=== PATIENT | male | born 1975 | race American Indian/Alaskan Native ===

== ENCOUNTER 2018-01-16 23:25 | Inpatient (IN) | payer OTHER ==
[2018-01-16] MEDS ORDERED: DUONEB *Not for PRN Use IH ONE (23:31)
[2018-01-16] MEDS ORDERED: PROVENTIL IH ONE (23:32)
[2018-01-17] MEDS ORDERED: DELTASONE PO ONE (01:47)
[2018-01-17] MEDS ORDERED: PROVENTIL IH ONE (01:48)
[2018-01-17] MEDS ORDERED: DUONEB *Not for PRN Use IH ONE ×2 (06:13→06:15)
[2018-01-17] MEDS ORDERED: MAGNESIUM SULFATE 2GM/50ML 2 GM/50 ML BAG IV ONE (06:14)
[2018-01-17] MEDS ORDERED: NACL 0.9% 1000 ML 1,000 ML IV ONE (06:51)
--- NOTE | 2018-01-17 07:18 | XRay Report ---
FINAL REPORT EXAM: XR CHEST 1V AP HISTORY: hypertension TECHNIQUE: A portable upright view of the chest was submitted. FINDINGS: The heart size and pulmonary vasculature appear normal. There are no localized infiltrates or effusions. There are EKG leads overlying the chest wall. The bones and soft tissues do not show any acute changes. IMPRESSION: No active chest disease.
--- NOTE | 2018-01-17 07:24 | XRay Report ---
FINAL REPORT EXAM: XR ANKLE 2V LT HISTORY: trauma pain TECHNIQUE: AP and lateral views of the left ankle were submitted. FINDINGS: There is a localized cortical lucency along the medial aspect of the talar dome suspicious for an osteochondritis desiccans. Joint fluid is not seen. There is mild soft tissue swelling overlying the lateral malleolus. IMPRESSION: Localized cortical lucency along the medial margin of the talar dome suspicious for an osteochondritis desiccans. MRI of the ankle is recommended for definitive evaluation. Mild soft tissue swelling overlying the lateral malleolus.
[2018-01-17 07:36] LABS: Basophils % (Auto) 0.7 % (0.0-1.8); Eosinophils # (Auto) 0.1 K/mm3 (0.0-0.4); Eosinophils % (Auto) 0.8 % (0.0-4.3); Hemoglobin 15.9 gm/dl (11.8-15.2); Lymphocytes # (Auto) 0.9 K/mm3 (1.2-5.4); Lymphocytes % (Auto) 13.1 % (13.4-35.0); Mean Corpuscular HGB Conc 34 % (32-34); Mean Corpuscular Hemoglobin 32 pg (28-32); Mean Corpuscular Volume 95 fl (84-94); Monocytes # (Auto) 0.1 K/mm3 (0.0-0.8); Monocytes % (Auto) 1.7 % (0.0-7.3); Platelet Count 231 K/mm3 (140-440); Red Blood Count 4.97 M/mm3 (3.65-5.03); Red Cell Distribution Width 15.6 % (13.2-15.2)
[2018-01-17 07:43] LABS: BUN/Creatinine Ratio 16; Blood Urea Nitrogen 18 mg/dL (9-20); Calcium 9.1 mg/dL (8.4-10.2); Creatine Kinase MB 7.5 ng/mL (0.0-4.0); Hemolysis Index 9
[2018-01-17 07:44] LABS: Alanine Aminotransferase 30 units/L (7-56); Albumin 4.5 g/dL (3.9-5); Bilirubin,Direct 0.2 mg/dL (0-0.2)
[2018-01-17 07:45] LABS: INR 0.98 (0.87-1.13)
[2018-01-17 07:46] LABS: Partial Thromboplastin Time 28.4 Sec. (24.2-36.6)
[2018-01-17] MEDS ORDERED: PROVENTIL IH PRN (08:35)
[2018-01-17] MEDS ORDERED: SODIUM CHLORIDE FLUSH SYRINGE 10 ML IV PRN (08:35)
[2018-01-17] MEDS ORDERED: TYLENOL PO PRN (08:35)
[2018-01-17] MEDS ORDERED: ZOFRAN IV PRN (08:35)
--- NOTE | 2018-01-17 08:38 | History and Physical Report ---
History of Present Illness Date of examination: 01/17/18 Date of admission: 01/17/18 Chief complaint: Shortness of breath History of present illness: This is a 42-year-old male with past medical history of asthma who presents to the hospital with complaining of left ankle pain which he believes he sustained following a missed step. He reports that he triggered his respiratory symptoms and became acutely short of breath prompting him to present to the hospital. He denies any cough denies any nausea vomiting or diarrhea and denies any chest pain. He complains of pain in the left ankle which is a 3/10 in intensity at rest and with any pressure to it goes up to 7/10 in intensity. He denies any fever. Uses tobacco and marijuana. Past History Past Medical History: other (asthma) Past Surgical History: No surgical history Social history: smoking Family history: no significant family history Medications and Allergies Allergies Allergy/AdvReac Type Severity Reaction Status Date / Time No Known Allergies Allergy Verified 08/17/15 15:32 Home Medications Medication Instructions Recorded Confirmed Last Taken Type ALBUTEROL Inhaler [ProAir HFA 2 puff IH QID PRN #1 inha 08/17/15 Unknown Rx Inhaler] Acyclovir [Zovirax Tab] 400 mg PO Q8H #30 tab 08/17/15 Unknown Rx HYDROcodone/APAP 5-325 [[place] 1 - 2 each PO Q6HR PRN #10 tablet 08/17/15 Unknown Rx 5/325] Prednisone [predniSONE 10 mg 10 mg PO .TAPER #1 tab.ds.pk 08/17/15 Unknown Rx (6-Day Pack, 21 Tabs)] Active Meds: Active Medications Acetaminophen (Tylenol) 650 mg PO Q4H PRN PRN Reason: Pain MILD(1-3)/Fever >100.5/WILSON Albuterol (Proventil) 2.5 mg IH Q3HRT PRN PRN Reason: Shortness Of Breath Arformoterol Tartrate (Brovana Nebu) 15 mcg IH Q12HRT DUGLAS Budesonide (Pulmicort) 0.5 mg IH Q12HRT DUGLAS Sodium Chloride (Nacl 0.9% 1000 Ml) 1,000 mls @ 125 mls/hr IV ONCE ONE Stop: 01/17/18 14:50 Last Admin: 01/17/18 07:01 Dose: 125 mls/hr Methylprednisolone Sodium Succinate (Solu-Medrol) 80 mg IV Q8HR DUGLAS Ondansetron HCl (Zofran) 4 mg IV Q8H PRN PRN Reason: Nausea And Vomiting Sodium Chloride (Sodium Chloride Flush Syringe 10 Ml) 10 ml IV BID DUGLAS Sodium Chloride (Sodium Chloride Flush Syringe 10 Ml) 10 ml IV PRN PRN PRN Reason: LINE FLUSH Review of Systems All systems: negative Respiratory: shortness of breath, wheezing Musculoskeletal: redness of joints, other (ankle pain) Exam - Physical Exam Narrative exam: VITAL SIGNS: Reviewed. GENERAL: The patient appeared well nourished and normally developed. Vital signs as documented. HEAD: No signs of head trauma. EYES: Pupils are equal. Extraocular motions intact. EARS: Hearing grossly intact. MOUTH: Oropharynx is normal. NECK: No adenopathy, no JVD. CHEST: Chest with wheezing breath sounds bilaterally. No , rales, or rhonchi. CARDIAC: Regular rate and rhythm. S1 and S2, without murmurs, gallops, or rubs. VASCULAR: No Edema. Peripheral pulses normal and equal in all extremities. ABDOMEN: Soft, without detectable tenderness. No sign of distention. No rebound or guarding, and no masses palpated. Bowel Sounds normal. MUSCULOSKELETAL: Good range of motion of all major joints, except left joints tender to palpation mildly swollen.. Extremities without clubbing, cyanosis or edema. NEUROLOGIC EXAM: Alert and oriented x 3. No focal sensory or strength deficits. Speech normal. Follows commands. PSYCHIATRIC: Mood anxious SKIN: No rash or lesions. - Constitutional Vitals: Temp Pulse Resp BP Pulse Ox 97.8 F 89 18 118/80 98 01/17/18 06:15 01/17/18 06:45 01/17/18 06:45 01/17/18 06:15 01/17/18 07:27 Results - Labs CBC & Chem 7: 01/17/18 07:00 01/17/18 07:00 Labs: Laboratory Last Values WBC 6.8 K/mm3 (4.5-11.0) 01/17/18 07:00 RBC 4.97 M/mm3 (3.65-5.03) 01/17/18 07:00 Hgb 15.9 gm/dl (11.8-15.2) H 01/17/18 07:00 Hct 47.0 % (35.5-45.6) H 01/17/18 07:00 MCV 95 fl (84-94) H 01/17/18 07:00 MCH 32 pg (28-32) 01/17/18 07:00 MCHC 34 % (32-34) 01/17/18 07:00 RDW 15.6 % (13.2-15.2) H 01/17/18 07:00 Plt Count 231 K/mm3 (140-440) 01/17/18 07:00 Lymph % (Auto) 13.1 % (13.4-35.0) L 01/17/18 07:00 [place] % (Auto) 1.7 % (0.0-7.3) 01/17/18 07:00 Eos % (Auto) 0.8 % (0.0-4.3) 01/17/18 07:00 Baso % (Auto) 0.7 % (0.0-1.8) 01/17/18 07:00 Lymph # 0.9 K/mm3 (1.2-5.4) L 01/17/18 07:00 [place] # 0.1 K/mm3 (0.0-0.8) 01/17/18 07:00 Eos # 0.1 K/mm3 (0.0-0.4) 01/17/18 07:00 Baso # 0.0 K/mm3 (0.0-0.1) 01/17/18 07:00 Seg Neutrophils % 83.7 % (40.0-70.0) H 01/17/18 07:00 Seg Neutrophils # 5.7 K/mm3 (1.8-7.7) 01/17/18 07:00 PT 13.5 Sec. (12.2-14.9) 01/17/18 07:00 INR 0.98 (0.87-1.13) 01/17/18 07:00 APTT 28.4 Sec. (24.2-36.6) 01/17/18 07:00 Sodium 137 mmol/L (137-145) 01/17/18 07:00 Potassium 4.2 mmol/L (3.6-5.0) 01/17/18 07:00 Chloride 99.4 mmol/L (98-107) 01/17/18 07:00 Carbon Dioxide 24 mmol/L (22-30) 01/17/18 07:00 Anion Gap 18 mmol/L 01/17/18 07:00 BUN 18 mg/dL (9-20) 01/17/18 07:00 Creatinine 1.1 mg/dL (0.8-1.5) 01/17/18 07:00 Estimated GFR > 60 ml/min 01/17/18 07:00 BUN/Creatinine Ratio 16 % 01/17/18 07:00 Glucose 131 mg/dL (75-100) H 01/17/18 07:00 Calcium 9.1 mg/dL (8.4-10.2) 01/17/18 07:00 Magnesium 3.10 mg/dL (1.7-2.3) H 01/17/18 07:00 Total Bilirubin 0.50 mg/dL (0.1-1.2) 01/17/18 07:00 Direct Bilirubin 0.2 mg/dL (0-0.2) 01/17/18 07:00 Indirect Bilirubin 0.3 mg/dL 01/17/18 07:00 AST 29 units/L (5-40) 01/17/18 07:00 ALT 30 units/L (7-56) 01/17/18 07:00 Alkaline Phosphatase 56 units/L (35-129) 01/17/18 07:00 Total Creatine Kinase 1229 units/L (55-170) H 01/17/18 07:00 CK-MB (CK-2) 7.5 ng/mL (0.0-4.0) H 01/17/18 07:00 CK-MB (CK-2) Rel Index 0.6 (0-4) 01/17/18 07:00 Troponin T < 0.010 ng/mL (0.00-0.029) 01/17/18 07:00 Total Protein 7.5 g/dL (6.3-8.2) 01/17/18 07:00 Albumin 4.5 g/dL (3.9-5) 01/17/18 07:00 Albumin/Globulin Ratio 1.5 % 01/17/18 07:00 - Imaging and Cardiology Imaging and Cardiology: Echo images shows possible ankle sprain with osteochondritis Assessment and Plan Assessment and plan: This is a 42-year-old male with past medical history of asthma who presents to the hospital with complaining of left ankle pain which he believes he sustained following a missed step. He reports that he triggered his respiratory symptoms and became acutely short of breath prompting him to present to the hospital. He denies any cough denies any nausea vomiting or diarrhea and denies any chest pain. He complains of pain in the left ankle which is a 3/10 in intensity at rest and with any pressure to it goes up to 7/10 in intensity. He denies any fever. Uses tobacco and marijuana. Acute respiratory failure secondary to asthma exacerbation Asthma exacerbation Left ankle sprain with possible osteochondritis Tobacco abuse Anxiety disorder Marijuana use disorder Plan Admit patient to [facility] Start on low-dose Xanax when necessary Urine drug screen pending Start on tapered steroids with nebulizer treatment Extensive counseling greater than 50 minutes provided patient but need to quit tobacco and marijuana use Obtain MRI of the ankle to better characterize we'll also obtain PT OT. DVT and GI prophylaxis Plan of care discussed with the patient in detail Advance Directives: Yes Plan of care discussed with patient/family: Yes
[2018-01-17] MEDS ORDERED: NON-FORMULARY (Acyclovir [Zovirax Tab] 400 MG) PO SCH (08:45)
[2018-01-17] MEDS: PULMICORT IH SCH ×2 (12:02→20:33)
[2018-01-17] MEDS: BROVANA NEBU IH SCH ×2 (12:02→20:33)
[2018-01-17] MEDS: SODIUM CHLORIDE FLUSH SYRINGE 10 ML IV SCH ×2 (13:03→21:15)
[2018-01-17] MEDS: ZOVIRAX PO SCH ×2 (14:27→21:15)
[2018-01-17] MEDS: PROVENTIL IH SCH ×2 (16:33→20:33)
[2018-01-17 17:38] LABS: Amphetamine Screen,Urine PRESUMPTIVE NEGATIVE; Benzodiazepines Screen,Urine PRESUMPTIVE NEGATIVE; Cannabinoid Screen,Urine PRESUMPTIVE NEGATIVE; Methadone Screen,Urine PRESUMPTIVE NEGATIVE; Opiate Screen,Urine PRESUMPTIVE NEGATIVE
[2018-01-17 18:12] LABS: Cocaine Screen,Urine PRESUMPTIVE POSITIVE
[2018-01-17] MEDS ORDERED: XANAX PO PRN (18:44)
[2018-01-17] MEDS: NORCO 5/325 PO PRN (21:14)
[2018-01-18] MEDS: PROVENTIL IH SCH ×5 (00:28→15:41)
[2018-01-18] MEDS: NORCO 5/325 PO PRN (05:30)
[2018-01-18] MEDS: ZOVIRAX PO SCH ×2 (05:31→14:00)
[2018-01-18 07:16] LABS: Hematocrit 45.2 % (35.5-45.6); Hemoglobin 14.9 gm/dl (11.8-15.2); Mean Corpuscular HGB Conc 33 % (32-34); Mean Corpuscular Hemoglobin 31 pg (28-32); Mean Corpuscular Volume 95 fl (84-94); Platelet Count 227 K/mm3 (140-440); Red Blood Count 4.75 M/mm3 (3.65-5.03); Red Cell Distribution Width 15.6 % (13.2-15.2)
[2018-01-18 07:38] LABS: BUN/Creatinine Ratio 18; Blood Urea Nitrogen 14 mg/dL (9-20); Calcium 9.2 mg/dL (8.4-10.2); Hemolysis Index 13
[2018-01-18 08:08] LABS: Band Neutrophils # (Manual) 0.1 K/mm3; Basophils % (Manual) 0 % (0.0-1.8); Eosinophils % (Manual) 0 % (0.0-4.3); Total Cells Counted 100
[2018-01-18 08:09] LABS: RBC Morphology Normal
[2018-01-18] MEDS: PULMICORT IH SCH (08:47)
[2018-01-18] MEDS: BROVANA NEBU IH SCH (08:51)
[2018-01-18] MEDS: SODIUM CHLORIDE FLUSH SYRINGE 10 ML IV SCH (10:59)
--- NOTE | 2018-01-18 17:07 | Discharge Summary ---
Providers - Providers Date of Admission: 01/17/18 08:35 Date of discharge: 01/18/18 Attending physician: INMESH OLVERA 01/17/18 19:15 Physical Therapy Evaluation and Treat [CONS] Routine Comment: Reason For Exam: ataxic gait Primary care physician: [employer] Hospitalization Condition: Good Pertinent studies: X-ray radiograph negative for ankle open fracture. Disposition: - TO HOME OR SELFCARE - Discharge Diagnoses (1) Asthma exacerbation Status: Acute Comment: Patient asthma has improved significantly. Patient has turned the corner. Minimal wheezing good air entry no shortness of breath. Stable for discharge. (2) Ankle pain, left Status: Acute Comment: Ankle pain status post fall. X-ray unremarkable. Patient area on ankle which was questionable for osteochondritis dissecans. Unlikely at this particular time. MRI pending. Does not need MRI to complete this workup. Can be done on outpatient basis. Patient able to move foot laterally no pain no pain upon palpation. Normal eversion and inversion and pronation and flexion of the foot and ankle. Core Measure Documentation - Palliative Care Palliative Care/ Comfort Measures: Not Applicable - Core Measures Any of the following diagnoses?: none Exam - Constitutional Vitals: Temp Pulse Resp BP Pulse Ox 97.4 F L 80 18 123/71 93 01/18/18 08:54 01/18/18 08:55 01/18/18 08:54 01/18/18 08:54 01/18/18 08:55 General appearance: Present: no acute distress, well-nourished - EENT Eyes: Present: PERRL ENT: hearing intact, clear oral mucosa - Neck Neck: Present: supple, normal ROM - Respiratory Respiratory effort: normal Respiratory: bilateral: CTA - Cardiovascular Heart Sounds: Present: S1 & S2. Absent: rub, click - Extremities Extremities: pulses symmetrical, No edema Peripheral Pulses: within normal limits - Abdominal General gastrointestinal: Present: soft, non-tender, non-distended, normal bowel sounds Male genitourinary: Present: normal - Integumentary Integumentary: Present: clear, warm, dry - Musculoskeletal Musculoskeletal: gait normal, strength equal bilaterally - Psychiatric Psychiatric: appropriate mood/affect, intact judgment & insight - Neurologic Neurologic: CNII-XII intact, moves all extremities Plan Activity: fall precautions Weight Bearing Status: Weight Bear as Tolerated Diet: low fat Follow up with: PRIMARY CARE, [Primary Care Provider] - 7 Days Prescriptions: Acyclovir [Zovirax Tab] 400 mg PO Q8H #30 tab ALBUTEROL Inhaler [ProAir HFA Inhaler] 2 puff IH QID PRN #1 inha PRN Reason: Shortness Of Breath Prednisone [predniSONE 10 mg (6-Day Pack, 21 Tabs)] 10 mg PO .TAPER #1 tab.ds.pk
[2018-01-18 18:49] VITALS: BP 131/84
--- NOTE | 2018-01-20 09:53 | Magnetic Resonance Report ---
MR LOWER EXTREMITY JOINT LEFT WITHOUT CONTRAST History: Left ankle pain, evaluate for osteochondritis dissecans. Technique: Multiple T1 and T2-weighted images with and without fat suppression through the left ankle. Comparison: Left ankle films dated 01/17/18. Findings: MRI demonstrates an osteochondral defect involving the posteromedial talar dome measuring up to 12 x 10 x 6 mm. There is a thin layer of hyperintense T2 signal beneath this lesion suggesting an unstable osteochondral defect. The remaining bone marrow signal in the visualized left ankle and foot is within normal limits. No evidence for significant osteoarthritic changes or erosive joint pathology. No bone lesion. The visualized musculotendinous structures in the anterior, medial and lateral ankle are intact with no evidence of rupture or tenosynovitis. The Achilles tendon is unremarkable. The soft tissues are within normal limits. 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 MR findings suggest an unstable fragment. Consultation with orthopedics is recommended.
== END 2018-01-18 20:18 | disposition home or self-care (01) | DRG 189 ==
LOC: ED 23:25 → 3A 01-17 08:35
PROVIDERS: ADMIT Internal Medicine; ATTEND Internal Medicine
DX: J96.00 Acute respiratory failure, unspecified whether with hypoxia or hypercapnia (principal); J45.901 Unspecified asthma with (acute) exacerbation; F12.90 Cannabis use, unspecified, uncomplicated; F17.200 Nicotine dependence, unspecified, uncomplicated; W10.9XXA Fall (on) (from) unspecified stairs and steps, initial encounter; S93.402A Sprain of unspecified ligament of left ankle, initial encounter; F41.9 Anxiety disorder, unspecified; Y93.89 Activity, other specified; Y92.89 Other specified places as the place of occurrence of the external cause; Y99.8 Other external cause status
CPT/HCPCS: 36415; 71045; 73721; 80048; 80074; 80307; 82550; 82553; 83735; 84484; 85007; 85025; 85610; 85730; 93005; 93010; 94640; 94760; 96365; 96366; 96375; 99406; J2930; J3475; J7030; J7512

== ENCOUNTER 2018-12-22 22:19 | Emergency (ER) | payer SELFPAY ==
[2018-12-22] MEDS ORDERED: MAGNESIUM SULFATE 2GM/50ML 2 GM/50 ML BAG IV ONE (22:34)
[2018-12-22] MEDS ORDERED: ATROVENT IH ONE (22:34)
[2018-12-22] MEDS ORDERED: SOLU-Medrol IV ONE (22:34)
[2018-12-22] MEDS ORDERED: PROVENTIL IH ONE (22:34)
[2018-12-22] MEDS ORDERED: NACL 0.9% 500 ML 500 ML IV ONE (22:35)
--- NOTE | 2018-12-22 22:35 | Emergency Department Report ---
ED Asthma HPI - General Chief Complaint: Adult Asthma Stated Complaint: ASTHMA Time Seen by Provider: 12/22/18 22:30 Source: patient Mode of arrival: Ambulatory Limitations: No Limitations - History of Present Illness Initial Comments: This is a 43-year-old gentleman. The patient is not known to this provider previously. He reports a history of asthma. He reports one lifetime intubation. He reports one hospitalization. He presents to the emergency room today with cough, wheezing, shortness of breath. Symptoms present for the past 2-3 days. They're constant. Worse with physical exertion. They decreased with rest. They decrease with inhaled medications and steroids given in the emergency room. he denies physical pain at this time. He endorses chest tightness with coughing and wheezing, otherwise, denies DVT, pulmonary embolus risk factors. Denies headache, neck pain. Denies abdominal pain. MD Complaint: "asthma attack", shortness of breath, wheezing -: Gradual, days(s) Asthma History: childhood onset, history of frequent attac, history of prior ED visit, previously intubated Severity: severe Associated Symptoms: dry cough - Related Data Previous Rx's Medication Instructions Recorded Last Taken Type Albuterol Sulfate [Proair 90 mcg IH Q4HR PRN #2 aer.pow.ba 12/23/18 Unknown Rx Respiclick] predniSONE [Deltasone] 40 mg PO QDAY #8 tab 12/23/18 Unknown Rx Allergies Allergy/AdvReac Type Severity Reaction Status Date / Time ibuprofen [From Motrin] AdvReac Itching Verified 12/22/18 22:39 ED Review of Systems ROS: Stated complaint: ASTHMA Other details as noted in HPI Constitutional: denies: fever Eyes: denies: eye discharge ENT: congestion Respiratory: cough, shortness of breath, SOB with exertion, wheezing Cardiovascular: denies: chest pain, syncope Gastrointestinal: denies: abdominal pain Musculoskeletal: denies: back pain Neurological: weakness ED Past Medical Hx - Past Medical History Hx Asthma: Yes - Social History Smoking Status: Former Smoker - Medications Home Medications: Home Medications Medication Instructions Recorded Confirmed Last Taken Type Albuterol Sulfate [Proair 90 mcg IH Q4HR PRN #2 aer.pow.ba 12/23/18 Unknown Rx Respiclick] predniSONE [Deltasone] 40 mg PO QDAY #8 tab 12/23/18 Unknown Rx ED Physical Exam - General General appearance: alert, anxious - Head Head exam: Present: atraumatic, normocephalic - Eye Eye exam: Present: normal appearance, EOMI - ENT ENT exam: Present: normal exam, normal orophraynx, mucous membranes moist, normal external ear exam - Neck Neck exam: Present: normal inspection, full ROM. Absent: tenderness, meningismus - Respiratory Respiratory exam: Present: wheezes, rhonchi - Cardiovascular Cardiovascular Exam: Present: regular rate, normal rhythm, normal heart sounds. Absent: bradycardia, tachycardia, irregular rhythm, systolic murmur, diastolic murmur, rubs, gallop - GI/Abdominal GI/Abdominal exam: Present: soft. Absent: distended, tenderness, guarding, rebound, rigid - Rectal Rectal exam: Present: deferred - Extremities Exam Extremities exam: Present: normal inspection, full ROM, other (2+ pulses noted in the bilateral upper, lower extremities. Compartments soft. No long bony tenderness. The pelvis is stable.). Absent: calf tenderness - Back Exam Back exam: Present: normal inspection, full ROM. Absent: tenderness, CVA tenderness (R), CVA tenderness (L), paraspinal tenderness, vertebral tenderness - Neurological Exam Neurological exam: Present: alert, oriented X3, other (Extraocular movements intact. Tongue midline. No facial droop. Facial sensation intact to light touch in the V1, V2, V3 distribution bilaterally. 5 and 5 strength in 4 extremities.. Sensation is intact to light touch in 4 extremities.). Absent: motor sensory deficit - Skin Skin exam: Present: warm, dry, intact, normal color. Absent: rash ED Course Vital Signs 12/22/18 12/22/18 12/22/18 22:37 22:47 23:06 Temperature 98.7 F Pulse Rate 92 H Pulse Rate [ 86 88 Bilateral] Respiratory 25 H Rate Respiratory 23 21 Rate [Bilateral ] Blood Pressure 137/91 O2 Sat by Pulse 96 Oximetry 12/22/18 23:31 Temperature Pulse Rate 82 Pulse Rate [ Bilateral] Respiratory 23 Rate Respiratory Rate [Bilateral ] Blood Pressure O2 Sat by Pulse 94 Oximetry - Reevaluation(s) Reevaluation #1: 12/23/18 00:13 Differential diagnosis, including but not limited to: Asthma exacerbation, bronchitis Assessment and plan: 43-year-old gentleman with probable asthma exacerbation. He has no DVT or pulmonary embolus risk factors. He is low risk by well's criteria. He is speaking in full sentences. After 10 mg of albuterol, 1 mg of Atrovent, magnesium and steroids, his wheezing is essentially resolved. He is now sleeping on his stretcher, and in no acute distress. He appears to have some form of sleep apnea, however, he does not have significant desaturation. He is completing his initial therapy, but I anticipate discharge with outpatient steroids, albuterol, and he will need to follow up with an outpatient sleep specialist for further evaluation of presumed undiagnosed sleep apnea. 12/23/18 00:16 Reevaluation #2: 12/23/18 00:51 Able to walk without desaturation. Feels improved. Work of breathing improved. We will discharge at this point in time. He can follow up with an outpatient primary care provider and/or dental billing specialist. ED Medical Decision Making - Lab Data Vital Signs 12/22/18 12/22/18 12/22/18 22:37 22:47 23:06 Temperature 98.7 F Pulse Rate 92 H Pulse Rate [ 86 88 Bilateral] Respiratory 25 H Rate Respiratory 23 21 Rate [Bilateral ] Blood Pressure 137/91 O2 Sat by Pulse 96 Oximetry 12/22/18 23:31 Temperature Pulse Rate 82 Pulse Rate [ Bilateral] Respiratory 23 Rate Respiratory Rate [Bilateral ] Blood Pressure O2 Sat by Pulse 94 Oximetry Critical care attestation.: If time is entered above; I have spent that time in minutes in the direct care of this critically ill patient, excluding procedure time. ED Disposition Clinical Impression: Asthma exacerbation Qualifiers: Asthma severity: unspecified severity Asthma persistence: unspecified Qualified Code(s): J45.901 - Unspecified asthma with (acute) exacerbation Disposition: DC-01 TO HOME OR SELFCARE Is pt being admited?: No Does the pt Need Aspirin: No Condition: Stable Instructions: Asthma (ED) Additional Instructions: Take the medications as needed/directed. Take the steroids, breathing treatments as directed. Follow-up with the primary care doctor within the next 2-3 weeks for repeat checkup/evaluation. Patient may have undiagnosed obstructive sleep apnea, which over time, if not treated, can cause issues with heart attack, congestive heart failure, stroke, pulmonary hypertension and disability. Therefore, it is very important to follow-up with a primary care doctor or sleep specialist to have an outpatient sleep study scheduled to rule in, or rule out this diagnosis. Patient may follow-up with any of the list of local primary care providers, or the local listed dental billing specialist; Dr. Leonarod Rhodes Please return to the emergency room right away with new pain, worsened pain, migration of pain, projectile vomiting, change of mental status, confusion, inability to tolerate liquid feeds, new, worsening or different symptoms. Prescriptions: predniSONE [Deltasone] 40 mg PO QDAY #8 tab Albuterol Sulfate [Proair Respiclick] 90 mcg IH Q4HR PRN #2 aer.pow.ba PRN Reason: Wheezing Referrals: [facility] MD JORGE [Primary Care Provider] - 3-5 Days [facility] [Provider Group] - 3-5 Days GAIL RHODES MD [Staff Physician] - as needed
[2018-12-22] MEDS ORDERED: NACL 0.9% 1000 ML 1,000 ML ONE (22:43)
[2018-12-23 00:53] VITALS: BP 127/101
== END 2018-12-23 00:54 | disposition home or self-care (01) ==
LOC: ED 22:19
DX: J45.901 Unspecified asthma with (acute) exacerbation (principal)
CPT/HCPCS: 94640; 96365; 96375; 99283; J2930; J3475; J7030

== ENCOUNTER 2019-01-16 07:03 | Observation (INO) | payer SELFPAY ==
[2019-01-16] MEDS ORDERED: DUONEB *Not for PRN Use IH ONE (07:15)
--- NOTE | 2019-01-16 07:15 | Emergency Department Report ---
ED Shortness of Breath HPI - General Stated Complaint: NADEEN Time Seen by Provider: 01/16/19 07:04 Source: patient Mode of arrival: Ambulatory Limitations: No Limitations - History of Present Illness Initial Comments: Patient is a 43-year-old male that presents to emergency room with complaints of shortness of breath, cough, difficulty breathing. Patient states he has asthma. Patient states ran out of all medications. Patient denies fever. Patient denies sputum production. Patient denies chills. Patient denies chest pain. Patient denies nausea vomiting. Patient states his symptoms are better with rest and bronchodilator and medications. Patient states symptoms are worse with exertion. Patient states that he recently was diagnosed with pneumonia. Patient states his symptoms have improved since being treated by EMS. EMS report received. EMS states they gave him magnesium, Solu-Medrol and albuterol. MD Complaint: shortness of breath, cough, "asthma attack" -: Sudden Severity: severe Consistency: constant Improves With: rest, bronchodilators Worsens With: exertion Context: recent URI, medication noncompliance Associated Symptoms: cough Treatments Prior to Arrival: bronchodilator, other - Related Data Home Oxygen Therapy: No Previous Rx's Medication Instructions Recorded Last Taken Type Albuterol Sulfate [Proair 90 mcg IH Q4HR PRN #2 [email or web address] 12/23/18 Unknown Rx Respiclick] Allergies Allergy/AdvReac Type Severity Reaction Status Date / Time ibuprofen [From Motrin] AdvReac Itching Verified 12/22/18 22:39 ED Review of Systems ROS: Stated complaint: NADEEN Other details as noted in HPI Constitutional: denies: chills, fever Eyes: denies: eye pain, eye discharge, vision change ENT: denies: ear pain, throat pain Respiratory: cough, shortness of breath, SOB with exertion, SOB at rest, wheezing Cardiovascular: denies: chest pain, palpitations Endocrine: no symptoms reported Gastrointestinal: denies: abdominal pain, nausea, diarrhea Genitourinary: denies: urgency, dysuria Musculoskeletal: denies: back pain, joint swelling, arthralgia Skin: denies: rash, lesions Neurological: denies: headache, weakness, paresthesias Psychiatric: denies: anxiety, depression Hematological/Lymphatic: denies: easy bleeding, easy bruising ED Past Medical Hx - Past Medical History Previous Medical History?: Yes Hx Asthma: Yes - Surgical History Past Surgical History?: No - Family History Family history: no significant - Social History Smoking Status: Former Smoker Substance Use Type: None - Medications Home Medications: Home Medications Medication Instructions Recorded Confirmed Last Taken Type Albuterol Sulfate [Proair 90 mcg IH Q4HR PRN #2 aer.ba 12/23/18 01/16/19 Unknown Rx Respiclick] ED Physical Exam - General Limitations: No Limitations General appearance: alert, in no apparent distress - Head Head exam: Present: atraumatic, normocephalic - Eye Eye exam: Present: normal appearance - ENT ENT exam: Present: mucous membranes moist - Neck Neck exam: Present: normal inspection - Respiratory Respiratory exam: Present: wheezes, rhonchi. Absent: respiratory distress - Cardiovascular Cardiovascular Exam: Present: regular rate, normal rhythm. Absent: systolic murmur, diastolic murmur, rubs, gallop - GI/Abdominal GI/Abdominal exam: Present: soft, normal bowel sounds - Rectal Rectal exam: Present: deferred - Extremities Exam Extremities exam: Present: normal inspection - Back Exam Back exam: Present: normal inspection - Neurological Exam Neurological exam: Present: alert, oriented X3 - Psychiatric Psychiatric exam: Present: normal affect, normal mood - Skin Skin exam: Present: warm, dry, intact, normal color. Absent: rash ED Course Vital Signs 01/16/19 01/16/19 01/16/19 07:18 07:21 07:30 Temperature 98.2 F Pulse Rate 75 70 62 Respiratory 16 16 16 Rate Blood Pressure 137/86 137/80 O2 Sat by Pulse 95 96 98 Oximetry 01/16/19 01/16/19 01/16/19 07:38 07:55 08:00 Temperature Pulse Rate 61 73 Respiratory 21 20 Rate Blood Pressure 127/79 O2 Sat by Pulse 96 96 97 Oximetry 01/16/19 01/16/19 01/16/19 08:15 08:30 08:45 Temperature Pulse Rate 91 H 75 75 Respiratory 22 15 19 Rate Blood Pressure 135/76 129/76 121/76 O2 Sat by Pulse 94 94 97 Oximetry 01/16/19 09:00 Temperature Pulse Rate 78 Respiratory 18 Rate Blood Pressure 119/78 O2 Sat by Pulse 95 Oximetry - Reevaluation(s) Reevaluation #1: Patient's still on oxygen and saturations only 96. Patient states she was slightly better. Discussed all results with patient. Patient will be admitted to the hospitalist service. Patient agrees to plan of care. 01/16/19 09:03 - Consultations Consultation #1: Hospitalist consulted for admission. Hospitalist to admit patient. Hospitalist to assume care patient. 01/16/19 09:03 ED Medical Decision Making - Lab Data Result diagrams: 01/16/19 07:22 01/16/19 07:22 - Radiology Data Radiology results: report reviewed Single view chest: Compared to 01/17/18. History: Dyspnea. Findings: Borderline cardiomegaly. Trachea is midline. Suspicion of minimal effusion left CP angle. No consolidation. Impression: No acute cardiopulmonary findings - Medical Decision Making is a 43-year-old mellitus emergency room for asthma exacerbation and wheezing and shortness of breath and difficulty breathing. Patient is status asthmaticus. Patient given multiple medications in route by EMS. Patient improved with these medications with symptoms and resolved. Due to the fact the patient required some much therapy patient was admitted to the hospitalist s ervice for further evaluation treatment and observation. - Differential Diagnosis asthma. status asthma. sob. nadeen. hypoxia Critical Care Time: Yes Critical care attestation.: If time is entered above; I have spent that time in minutes in the direct care of this critically ill patient, excluding procedure time. Critical Care Time: 35 minutes ED Disposition Clinical Impression: Hypoxia Asthma exacerbation Qualifiers: Asthma severity: severe Asthma persistence: unspecified Qualified Code(s): J45.901 - Unspecified asthma with (acute) exacerbation Status asthmaticus Qualifiers: Asthma severity: severe Asthma persistence: unspecified Qualified Code(s): J45.902 - Unspecified asthma with status asthmaticus Disposition: 09 OP ADMIT IP TO THIS HOSP Is pt being admited?: Yes Does the pt Need Aspirin: No Condition: Critical Time of Disposition: 09:05
--- NOTE | 2019-01-16 08:01 | XRay Report ---
Single view chest: Compared to 01/17/18. History: Dyspnea. Findings: Borderline cardiomegaly. Trachea is midline. Suspicion of minimal effusion left CP angle. No consolidation. Impression: No acute cardiopulmonary findings
[2019-01-16 08:02] LABS: Alanine Aminotransferase 51 units/L (7-56); BUN/Creatinine Ratio 18; Blood Urea Nitrogen 14 mg/dL (9-20); Calcium 8.4 mg/dL (8.4-10.2); Hemolysis Index 13
[2019-01-16 08:18] LABS: Hematocrit 42.9 % (35.5-45.6); Hemoglobin 14.5 gm/dl (11.8-15.2); Mean Corpuscular HGB Conc 34 % (32-34); Mean Corpuscular Volume 93 fl (84-94); Platelet Count 275 K/mm3 (140-440); Red Blood Count 4.59 M/mm3 (3.65-5.03); Red Cell Distribution Width 15.5 % (13.2-15.2)
[2019-01-16 09:09] LABS: Basophils % (Manual) 0 % (0.0-1.8); Large Platelets Rare; Platelet Estimate Consistent w Auto; RBC Morphology Normal; Total Cells Counted 100
--- NOTE | 2019-01-16 12:06 | History and Physical Report ---
History of Present Illness Date of examination: 01/16/19 Date of admission: 01/16/19 09:04 Chief complaint: SOB History of present illness: Patient is a 43 yo man with a history of asthma who presents to [facility] ED with severe constant progessive worsening SOB that started yesterday after working outside and being around people that were smoking which aggravated his SOB. He tried to use his albuterol six times without relief. He has been intubated for asthma in the past. He snores really loud and stop breathing while sleep per . He has daytime sleepiness. He denies smoking, he quit 4 years ago. He denies fever, night sweats, n/v/d. He denies chest pains but has tightness with non productive coughing. PMH: as hpi, also, pre-DM PSH: denies SH: former smoker quit 4 years ago, drinks a fifth of Ryan Matthias weekly, no illegal drugs FH: mother with hypertension, sister with DM ROS: Constitutional: denies: fever ENT: denies: throat or neck pain Respiratory: + cough, shortness of breath Cardiovascular: denies: chest pain Endocrine: denies unexplained weight loss or gain Gastrointestinal: denies: abdominal pain, nausea Genitourinary: denies: dysuria Rectal: denies no incontinence, no bleeding, no itching, no discharge Musculoskeletal: denies swelling, myaglia, muscle weakness Skin: denies: rash Neurological: denies: headache Hematological/Lymphatic: denies: easy bleeding or easy bruising Allergic/Immunologic: no urticaria, no allergic rhinitis, no anaphylaxis Psych: denies sadness or hopelessness, SI/HI Medications and Allergies Allergies Allergy/AdvReac Type Severity Reaction Status Date / Time ibuprofen [From Motrin] AdvReac Itching Verified 12/22/18 22:39 Home Medications Medication Instructions Recorded Confirmed Last Taken Type Albuterol Sulfate [Proair 90 mcg IH Q4HR PRN #2 [email or web address] 12/23/18 01/16/19 Unknown Rx Respiclick] Exam - Physical Exam Narrative exam: Gen: WDWN, obese, bmi 39.1, NAD, Awake, Alert, Orientated x 3 HEENT: NCAT, EOMI, PERRL, OP Clear Neck: supple, no adenopathy, no thyromegaly, no JVD CVS/Heart: RRR, normal S1S2, pulses present bilaterally Chest/Lungs: bilateral wheezing, diminished bs bilateral, Symmetrical chest expansion, good air entry bilaterally GI/Abdomen: soft, NTND, good bowel sounds, no guarding or rebound /Bladder: no suprapubic tenderness, no CVA or paraspinal tenderness Extermity/Skin: no c/c/e, no obvious rash MSK: FROM x 4 Neuro: CN 2-12 grossly intact, no new focal deficits Psych: calm - Constitutional Vitals: Temp Pulse Resp BP Pulse Ox 98.2 F 78 18 119/78 95 01/16/19 07:21 01/16/19 09:00 01/16/19 09:00 01/16/19 09:00 01/16/19 09:00 Results - Labs CBC & Chem 7: 01/16/19 07:22 01/16/19 07:22 Labs: Abnormal lab results 01/16/19 01/16/19 Range/Units 07:22 07:22 RDW 15.5 H (13.2-15.2) % Seg Neuts % (Manual) 30.0 L (40.0-70.0) % Lymphocytes % (Manual) 58.0 H (13.4-35.0) % Eosinophils % (Manual) 10.0 H (0.0-4.3) % Seg Neutrophils # Man 1.7 L (1.8-7.7) K/mm3 Eosinophils # (Manual) 0.6 H (0.0-0.4) K/mm3 Glucose 125 H (75-100) mg/dL Assessment and Plan Patient is a 43 yo man with a history of asthma who presents to [facility] ED with severe constant progessive worsening SOB that started yesterday after working outside and being around people that were smoking which aggravated his SOB. He tried to use albuterol six times without relief. He has been intubated for asthma in the past. He snores really loud and stop breathing while sleep per . He has daytime sleepiness. He denies smoking, he quit 4 years ago. He denies fever, night sweats, n/v/d. He denies chest pains but has tightness with non productive coughing. Patient de-saturated down to 81% while sleeping. Acute hypoxic respiratory failure: SEMAJ assessment, treat with O2, and treat the Asthma, consulted Pulmonology Acute Asthma exacerbation: treat with steroids, around the clock nebs, pulse ox, respiratory therapy follow up Acute severe persistent asthma: treat as above Suspected SEMAJ: day camp counselor on getting outpatient sleep study Obesity, bmi 39: day camp counselor on weight reduction Hyperglycemia, with h/o pre-DM: check a1c, repeat fasting bmp in am DVT prophylaxis: sq heparin
[2019-01-16] MEDS ORDERED: PROVENTIL IH PRN (12:08)
[2019-01-16] MEDS ORDERED: MIRALAX 3350 PO PRN (12:10)
[2019-01-16] MEDS ORDERED: ZOFRAN IV PRN (12:10)
[2019-01-16] MEDS ORDERED: TYLENOL PO PRN (12:10)
[2019-01-16] MEDS: PROTONIX PO SCH (13:07)
[2019-01-16] MEDS: SOLU-Medrol IV SCH ×2 (13:11→21:16)
[2019-01-16] MEDS: BROVANA NEBU IH SCH ×2 (15:06→21:00)
[2019-01-16] MEDS: DUONEB *Not for PRN Use IH SCH ×3 (15:06→20:59)
[2019-01-16] MEDS: PULMICORT IH SCH ×2 (15:07→20:59)
[2019-01-16] MEDS ORDERED: AMBIEN PO PRN (22:00)
[2019-01-17 05:48] LABS: Hemoglobin 14.7 gm/dl (11.8-15.2); Mean Corpuscular HGB Conc 34 % (32-34); Mean Corpuscular Volume 93 fl (84-94); Platelet Count 273 K/mm3 (140-440); Red Blood Count 4.62 M/mm3 (3.65-5.03); Red Cell Distribution Width 15.8 % (13.2-15.2)
[2019-01-17] MEDS: SOLU-Medrol IV SCH ×3 (05:55→22:28)
[2019-01-17 06:13] LABS: BUN/Creatinine Ratio 20; Blood Urea Nitrogen 16 mg/dL (9-20); Calcium 9.5 mg/dL (8.4-10.2); Hemolysis Index 28
[2019-01-17] MEDS: DUONEB *Not for PRN Use IH SCH ×3 (08:30→21:08)
[2019-01-17] MEDS: BROVANA NEBU IH SCH ×2 (08:34→21:08)
[2019-01-17] MEDS: PULMICORT IH SCH ×2 (08:34→21:08)
[2019-01-17] MEDS: HEPARIN SUB-Q SCH ×2 (13:03→22:28)
[2019-01-17] MEDS: PROTONIX PO SCH (13:03)
--- NOTE | 2019-01-17 16:41 | Consultation ---
History of Present Illness Consult date: 01/17/19 Requesting physician: PATIENCE PATIÑO Reason for consult: asthma History of present illness: 43 y/o male with acute respiratory failure secondary to asthma exacerbation. patient diagnosed with asthma as an adult 20 years ago. Patient follows with [facility] as he is unfunded and has never seen a civil drafter. Per patient he takes symbicort and albuterol inhaler and neb treatments that are likely albuterol. he also states that he has been told he has sleep apnea but never formally evaluated. He also suffers from GERD and is not on therapy for this. Remainder is negative. Past History Past Medical History: other (asthma, and obesity) Past Surgical History: No surgical history Social history: no significant social history Family history: no significant family history Medications and Allergies Allergies Allergy/AdvReac Type Severity Reaction Status Date / Time ibuprofen [From Motrin] AdvReac Itching Verified 12/22/18 22:39 Home Medications Medication Instructions Recorded Confirmed Last Taken Type Albuterol Sulfate [Proair 90 mcg IH Q4HR PRN #2 aer.[email or web address] 12/23/18 01/16/19 Unknown Rx Respiclick] Active Meds: Active Medications Acetaminophen (Tylenol) 650 mg PO Q6H PRN PRN Reason: Non Cardiac Pain or Temp>100.5 Last Admin: 01/16/19 21:16 Dose: 650 mg Documented by: Albuterol (Proventil) 2.5 mg IH Q4HRT PRN PRN Reason: Shortness Of Breath Last Admin: 01/17/19 02:14 Dose: 2.5 mg Documented by: Albuterol/Ipratropium (Duoneb *Not For Prn Use*) 1 ampul IH TIDRT [facility] Last Admin: 01/17/19 14:52 Dose: 1 ampul Documented by: Arformoterol Tartrate (Brovana Nebu) 15 mcg IH Q12HRT [facility] Last Admin: 01/17/19 08:34 Dose: 15 mcg Documented by: Budesonide (Pulmicort) 0.5 mg IH Q12HRT [facility] Last Admin: 01/17/19 08:34 Dose: 0.5 mg Documented by: Heparin Sodium (Porcine) (Heparin) 5,000 unit SUB-Q Q12HR [facility] Last Admin: 01/17/19 13:03 Dose: 5,000 unit Documented by: Methylprednisolone Sodium Succinate (Solu-Medrol) 80 mg IV Q8HR [facility] Last Admin: 01/17/19 13:03 Dose: 80 mg Documented by: Ondansetron HCl (Zofran) 4 mg IV Q4H PRN PRN Reason: Nausea And Vomiting Pantoprazole Sodium (Protonix) 40 mg PO QDAY [facility] Last Admin: 01/17/19 13:03 Dose: 40 mg Documented by: Polyethylene Glycol (Miralax [id number]) 17 gm PO QDAY PRN PRN Reason: Constipation Zolpidem Tartrate (Ambien) 5 mg PO QHS PRN PRN Reason: Sleep Last Admin: 01/16/19 21:17 Dose: 5 mg Documented by: Review of Systems All systems: negative Physical Examination Vital signs: Vital Signs Pulse Resp Pulse Ox 75 16 95 01/16/19 07:18 01/16/19 07:18 01/16/19 07:18 General appearance: no acute distress, alert, other (morbidly obese ) Eyes: non-icteric ENT: oropharynx moist Neck: supple Ascultation: Bilateral: diminished breath sounds, wheezes Percussion: Bilateral: not dull Tactile fremitus: Bilateral: normal Cardiovascular: regular rate and rhythm Gastrointestinal: normoactive bowel sounds, soft Extremities: no cyanosis normal mental status, non-focal exam mood appropriate Results - Laboratory Findings CBC and BMP: 01/17/19 05:04 01/17/19 05:05 Abnormal lab findings: Abnormal Labs 01/16/19 01/16/19 01/17/19 07:22 07:22 05:04 WBC 11.2 H RDW 15.5 H 15.8 H Seg Neuts % (Manual) 30.0 L Lymphocytes % (Manual) 58.0 H Eosinophils % (Manual) 10.0 H Seg Neutrophils # Man 1.7 L Eosinophils # (Manual) 0.6 H Glucose 125 H 01/17/19 05:05 WBC RDW Seg Neuts % (Manual) Lymphocytes % (Manual) Eosinophils % (Manual) Seg Neutrophils # Man Eosinophils # (Manual) Glucose 231 H - Diagnostic Findings Chest x-ray: image reviewed (No evidence of acute lung disease) Assessment and Plan 43 y/o male with acute on chronic respiratory failure thought secondary to asthma exacerbation and likely untreated GERD And Sleep apnea. 1. Suggest BID PPI 2. Continue Symbicort, but at discharge will need 160 2 puffs BID instead of 80 3. Patient should be screened for SEMAJ but this would have to be done via the [facility].
--- NOTE | 2019-01-17 16:52 | Progress Note ---
Assessment and Plan Assessment and plan: Patient is a 43 yo man with a history of asthma who presents to [facility] ED with severe constant progressive worsening SOB that started yesterday after working outside and being around people that were smoking which aggravated his SOB. He tried to use albuterol six times without relief. He has been intubated for asthma in the past. He snores really loud and stop breathing while sleep per . He has daytime sleepiness. He denies smoking, he quit 4 years ago. He denies fever, night sweats, n/v/d. He denies chest pains but has tightness with non productive coughing. Patient de-saturated down to 81% while sleeping. Acute hypoxic respiratory failure: SEMAJ assessment, treat with O2, and treat the Asthma, consulted Pulmonology, input noted Acute Asthma exacerbation: treat with steroids, around the clock nebs, pulse ox, respiratory therapy follow up Acute severe persistent asthma: treat as above Suspected SEMAJ: addiction treatment counselor on getting outpatient sleep study Obesity, bmi 39: addiction treatment counselor on weight reduction Hyperglycemia, with h/o pre-DM: a1c is 6.0 DVT prophylaxis: sq heparin NiPPV at night really did help. He has no insurance, ?affordibility of [employer] machine. History Interval history: Patient was seen and examined. Follow-up on current diagnosis of Asthma Exacerbation, still sob. No overnight events reported to me. Patient denies any chest pain, nausea/vomiting or severe headaches. Imaging, nursing note, chart, labs and old chart reviewed. Discussed with patient. Hospitalist Physical - Physical exam Narrative exam: Gen: WDWN, obese, bmi 39.1, NAD, Awake, Alert, Orientated x 3 HEENT: NCAT, EOMI, PERRL, OP Clear Neck: supple, no adenopathy, no thyromegaly, no JVD CVS/Heart: RRR, normal S1S2, pulses present bilaterally Chest/Lungs: bilateral wheezing, diminished bs bilateral, Symmetrical chest expansion, good air entry bilaterally GI/Abdomen: soft, NTND, good bowel sounds, no guarding or rebound /Bladder: no suprapubic tenderness, no CVA or paraspinal tenderness Extermity/Skin: no c/c/e, no obvious rash MSK: FROM x 4 Neuro: CN 2-12 grossly intact, no new focal deficits Psych: calm - Constitutional Vitals: Temp Pulse Resp BP Pulse Ox 98.0 F 95 H 24 145/74 90 01/17/19 12:23 01/17/19 12:23 01/17/19 13:24 01/17/19 12:23 01/17/19 12:23 Results - Labs CBC & Chem 7: 01/17/19 05:04 01/17/19 05:05 Labs: Laboratory Last Values WBC 11.2 K/mm3 (4.5-11.0) H 01/17/19 05:04 RBC 4.62 M/mm3 (3.65-5.03) 01/17/19 05:04 Hgb 14.7 gm/dl (11.8-15.2) 01/17/19 05:04 Hct 43.0 % (35.5-45.6) 01/17/19 05:04 MCV 93 fl (84-94) 01/17/19 05:04 MCH 32 pg (28-32) 01/17/19 05:04 MCHC 34 % (32-34) 01/17/19 05:04 RDW 15.8 % (13.2-15.2) H 01/17/19 05:04 Plt Count 273 K/mm3 (140-440) 01/17/19 05:04 Add Manual Diff Complete 01/16/19 07:22 Total Counted 100 01/16/19 07:22 Seg Neutrophils % Patient Safety Sitter 01/16/19 07:22 Seg Neuts % (Manual) 30.0 % (40.0-70.0) L 01/16/19 07:22 0 % 01/16/19 07:22 58.0 % (13.4-35.0) H 01/16/19 07:22 Reactive Lymphs % (Man) 0 % 01/16/19 07:22 2.0 % (0.0-7.3) 01/16/19 07:22 10.0 % (0.0-4.3) H 01/16/19 07:22 0 % (0.0-1.8) 01/16/19 07:22 0 % 01/16/19 07:22 0 % 01/16/19 07:22 0 % 01/16/19 07:22 0 % 01/16/19 07:22 Nucleated RBC % Not Reportable 01/16/19 07:22 Seg Neutrophils # Man 1.7 K/mm3 (1.8-7.7) L 01/16/19 07:22 Band Neutrophils # 0.0 K/mm3 01/16/19 07:22 3.2 K/mm3 (1.2-5.4) 01/16/19 07:22 Abs React Lymphs (Man) 0.0 K/mm3 01/16/19 07:22 0.1 K/mm3 (0.0-0.8) 01/16/19 07:22 0.6 K/mm3 (0.0-0.4) H 01/16/19 07:22 0.0 K/mm3 (0.0-0.1) 01/16/19 07:22 0.0 K/mm3 01/16/19 07:22 0.0 K/mm3 01/16/19 07:22 0.0 K/mm3 01/16/19 07:22 Blast Cells # 0.0 K/mm3 01/16/19 07:22 WBC Morphology Not Reportable 01/16/19 07:22 Hypersegmented Neuts Not Reportable 01/16/19 07:22 Hyposegmented Neuts Not Reportable 01/16/19 07:22 Hypogranular Neuts Not Reportable 01/16/19 07:22 Not Reportable 01/16/19 07:22 Not Reportable 01/16/19 07:22 Not Reportable 01/16/19 07:22 Not Reportable 01/16/19 07:22 Not Reportable 01/16/19 07:22 Not Reportable 01/16/19 07:22 Consistent w auto 01/16/19 07:22 Not Reportable 01/16/19 07:22 Plt Clumps, EDTA Not Reportable 01/16/19 07:22 Rare 01/16/19 07:22 Not Reportable 01/16/19 07:22 Not Reportable 01/16/19 07:22 Plt Morphology Comment Not Reportable 01/16/19 07:22 RBC Morphology Normal 01/16/19 07:22 Dimorphic RBCs Not Reportable 01/16/19 07:22 Not Reportable 01/16/19 07:22 Not Reportable 01/16/19 07:22 Not Reportable 01/16/19 07:22 Not Reportable 01/16/19 07:22 Not Reportable 01/16/19 07:22 Not Reportable 01/16/19 07:22 Not Reportable 01/16/19 07:22 Not Reportable 01/16/19 07:22 Not Reportable 01/16/19 07:22 Not Reportable 01/16/19 07:22 Not Reportable 01/16/19 07:22 Not Reportable 01/16/19 07:22 Not Reportable 01/16/19 07:22 Not Reportable 01/16/19 07:22 Not Reportable 01/16/19 07:22 Not Reportable 01/16/19 07:22 Not Reportable 01/16/19 07:22 Not Reportable 01/16/19 07:22 Not Reportable 01/16/19 07:22 Acanthocytes (Spur) Not Reportable 01/16/19 07:22 Rouleaux Not Reportable 01/16/19 07:22 Not Reportable 01/16/19 07:22 Not Reportable 01/16/19 07:22 Not Reportable 01/16/19 07:22 Not Reportable 01/16/19 07:22 Hem Pathologist Commnt No 01/16/19 07:22 Sodium 137 mmol/L (137-145) 01/17/19 05:05 Potassium 4.7 mmol/L (3.6-5.0) 01/17/19 05:05 Chloride 98.4 mmol/L (98-107) 01/17/19 05:05 Carbon Dioxide 24 mmol/L (22-30) 01/17/19 05:05 19 mmol/L 01/17/19 05:05 BUN 16 mg/dL (9-20) 01/17/19 05:05 0.8 mg/dL (0.8-1.5) 01/17/19 05:05 Estimated GFR > 60 ml/min 01/17/19 05:05 20 % 01/17/19 05:05 Glucose 231 mg/dL (75-100) H 01/17/19 05:05 6.0 % (4-6) 01/16/19 13:30 Lactic Acid 1.30 mmol/L (0.7-2.0) 01/16/19 07:22 Calcium 9.5 mg/dL (8.4-10.2) 01/17/19 05:05 0.30 mg/dL (0.1-1.2) 01/16/19 07:22 AST 38 units/L (5-40) 01/16/19 07:22 ALT 51 units/L (7-56) 01/16/19 07:22 48 units/L (35-129) 01/16/19 07:22 6.5 g/dL (6.3-8.2) 01/16/19 07:22 4.0 g/dL (3.9-5) 01/16/19 07:22 1.6 % 01/16/19 07:22 TSH 0.479 mlU/mL (0.270-4.200) 01/16/19 13:30 Active Medications - Current Medications Current Medications: Generic Name Dose Route Start Last Admin Trade Name Freq PRN Reason Stop Dose Admin Acetaminophen 650 mg 01/16/19 12:10 01/16/19 21:16 Tylenol PO 650 mg Q6H PRN Administration Non Cardiac Pain or Temp>100.5 Albuterol 2.5 mg 01/16/19 12:08 01/17/19 02:14 Proventil IH 2.5 mg Q4HRT PRN Administration Shortness Of Breath Albuterol/Ipratropium 1 ampul 01/17/19 08:00 01/17/19 14:52 Duoneb *Not For Prn Use* IH 1 ampul TIDRT DUGLAS Administration Arformoterol Tartrate 15 mcg 01/16/19 13:00 01/17/19 08:34 Brovana Nebu IH 15 mcg Q12HRT DUGLAS Administration Budesonide 0.5 mg 01/16/19 13:00 01/17/19 08:34 Pulmicort IH 0.5 mg Q12HRT DUGLAS Administration Heparin Sodium (Porcine) 5,000 unit 01/17/19 12:11 01/17/19 13:03 Heparin SUB-Q 5,000 unit Q12HR DUGLAS Administration Methylprednisolone Sodium Succinate 80 mg 01/16/19 14:00 01/17/19 13:03 Solu-Medrol IV 80 mg Q8HR DUGLAS Administration Ondansetron HCl 4 mg 01/16/19 12:10 Zofran IV Q4H PRN Nausea And Vomiting Pantoprazole Sodium 40 mg 01/16/19 12:30 01/17/19 13:03 Protonix PO 40 mg QDAY DUGLAS Administration Polyethylene Glycol 17 gm 01/16/19 12:10 Miralax 3350 PO QDAY PRN Constipation Zolpidem Tartrate 5 mg 01/16/19 22:00 01/16/19 21:17 Ambien PO 5 mg QHS PRN Administration Sleep Nutrition/Malnutrition Assess - Dietary Evaluation Nutrition/Malnutrition Findings: Nutrition Notes Start: 01/17/19 16:14 Freq: Status: Active Protocol: Document 01/17/19 16:14 RM (Rec: 01/17/19 16:14 RM [id number]) Nutrition Notes 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 Igor 22 points. Nutrition Intervention Revisit per MD consult or patient Sign Off request:
[2019-01-18] MEDS: SOLU-Medrol IV SCH (05:34)
[2019-01-18] MEDS: BROVANA NEBU IH SCH (08:23)
[2019-01-18] MEDS: DUONEB *Not for PRN Use IH SCH ×2 (08:23→13:24)
[2019-01-18] MEDS: PULMICORT IH SCH (08:23)
--- NOTE | 2019-01-18 15:26 | Discharge Summary ---
Providers - Providers Date of Admission: 01/16/19 09:04 Date of discharge: 01/18/19 Attending physician: PATIENCE PATIÑO 01/16/19 12:10 Consult to Physician [CONS] Routine Comment: Consulting Provider: MARISSA ABRAHAM Physician Instructions: Reason For Exam: severe persistent asthma [facility] Condition: Stable Hospital course: Patient is a 43 yo man with a history of asthma who presents to [facility] ED with severe constant progressive worsening SOB that started yesterday after working outside and being around people that were smoking which aggravated his SOB. He tried to use albuterol six times without relief. He has been intubated for asthma in the past. He snores really loud and stop breathing while sleep per . He has daytime sleepiness. He denies smoking, he quit 4 years ago. He denies fever, night sweats, n/v/d. He denies chest pains but has tightness with non productive coughing. Patient de-saturated down to 81% while sleeping. Acute hypoxic respiratory failure: O2 weaned off Acute Asthma exacerbation: treat with steroids, around the clock nebs, pulse ox, respiratory therapy follow up Acute severe persistent asthma: treat as above Suspected SEAMJ: family counselor on getting outpatient sleep study Obesity, bmi 39: family counselor on weight reduction Hyperglycemia, with h/o pre-DM: a1c is 6.0 DVT prophylaxis: sq heparin Disposition: DC-01 TO HOME OR SELFCARE Time spent for discharge: 35 minutes Core Measure Documentation - Palliative Care Palliative Care/ Comfort Measures: Not Applicable - Core Measures Any of the following diagnoses?: none - VTE Discharge Requirements Deep Vein Thrombosis/Pulmonary Embolism Present on Admission: No Has pt received <5 days of overlap therapy or INR<2.0: No Anticoagulant overlap therapy prescribed at discharge: No Contraindication No Overlap Therapy order at DC: Not Indicated Exam - Physical Exam Narrative exam: Gen: WDWN, obese, bmi 39.1, NAD, Awake, Alert, Orientated x 3 HEENT: NCAT, EOMI, PERRL, OP Clear Neck: supple, no adenopathy, no thyromegaly, no JVD CVS/Heart: RRR, normal S1S2, pulses present bilaterally Chest/Lungs: bilateral wheezing, diminished bs bilateral, Symmetrical chest expansion, good air entry bilaterally GI/Abdomen: soft, NTND, good bowel sounds, no guarding or rebound /Bladder: no suprapubic tenderness, no CVA or paraspinal tenderness Extermity/Skin: no c/c/e, no obvious rash MSK: FROM x 4 Neuro: CN 2-12 grossly intact, no new focal deficits Psych: calm - Constitutional Vitals: Temp Pulse Resp BP Pulse Ox 98.0 F 65 20 146/79 96 01/18/19 06:16 01/18/19 13:26 01/18/19 13:26 01/18/19 06:16 01/18/19 08:26 Plan Activity: other (no strenous activity unless cleared by PCP) Diet: low salt (low Carbs diet) Special Instructions: record blood sugar diary Follow up with: LEONORA COLES MD [Primary Care Provider] - 3-5 Days Prescriptions: Montelukast [Singulair] 10 mg PO QHS #30 tablet methylPREDNISolone [Medrol 4MG DOSEPAK (21 tabs)] 1 dose PO DAILY #1 tab.ds.pk ALBUTEROL Inhaler (OR & NICU) [ProAir HFA Inhaler] 2 puff IH Q4H PRN #1 unit PRN Reason: Shortness Of Breath Pantoprazole [Protonix TAB] 40 mg PO BID #14 tablet Budesonide/Formoterol Fumarate [Symbicort 160-4.5 Mcg Inhaler] 2 puff IH BID #1 unit
[2019-01-18 17:24] VITALS: BP 142/73
[2019-01-18] MEDS ORDERED: SINGULAIR PO SCH (22:00)
[2019-01-18] MEDS ORDERED: PROTONIX PO SCH (22:00)
== END 2019-01-18 14:50 | disposition home or self-care (01) ==
LOC: ED 07:03 → 3A 09:04 → UNDODISOB 01-17 15:34
PROVIDERS: ADMIT Internal Medicine; ATTEND Internal Medicine
DX: J96.21 Acute and chronic respiratory failure with hypoxia (principal); J45.51 Severe persistent asthma with (acute) exacerbation; E66.9 Obesity, unspecified; Z68.39 Body mass index [BMI] 39.0-39.9, adult; E72.51 Non-ketotic hyperglycinemia; Z79.891 Long term (current) use of opiate analgesic; Z98.890 Other specified postprocedural states
CPT/HCPCS: 36415; 71045; 80048; 80053; 82140; 83036; 84443; 85007; 85025; 85027; 94640; 94660; 94760; 96372; 96374; 96376; 99291; G0378; J1644; J2930

== ENCOUNTER 2019-02-12 18:23 | Emergency (ER) | payer SELFPAY ==
[2019-02-12] MEDS ORDERED: NACL 0.9% 1000 ML 1,000 ML IV ONE ×3 (19:37→21:00)
[2019-02-12] MEDS ORDERED: ZITHROMAX 500 MG in NACL 0.9% 250ML 250 ML IV ONE (20:00)
[2019-02-12] MEDS ORDERED: TYLENOL PO ONE (20:19)
[2019-02-12] MEDS ORDERED: DUONEB *Not for PRN Use IH ONE (20:19)
--- NOTE | 2019-02-12 20:20 | Emergency Department Report ---
ED Shortness of Breath HPI - General Chief Complaint: Dyspnea/Respdistress Stated Complaint: GUTIERREZ Time Seen by Provider: 02/12/19 19:36 Source: patient, RN notes reviewed, old records reviewed Mode of arrival: Ambulatory Limitations: No Limitations - History of Present Illness Initial Comments: 43-year-old male with a past medical history of asthma with one previous intubation presents to the hospital complaining of shortness of breath, wheezing, subjective fever, cough and generalized body aches since yesterday. Cough is nonproductive. Patient compliant with his meds without improvement. His recently got over a cold. Patient denies recent travel, calf tenderness, or leg edema. Patient received Solu-Medrol, nebs, and magnesium with improvement. His primary care doctor is [place] [facility]. - Related Data Previous Rx's Medication Instructions Recorded Last Taken Type ALBUTEROL Inhaler (OR & NICU) 2 puff IH Q4H PRN #1 unit 01/18/19 Unknown Rx [ProAir HFA Inhaler] Budesonide/Formoterol Fumarate 2 puff IH BID #1 unit 01/18/19 Unknown Rx [Symbicort 160-4.5 Mcg Inhaler] Montelukast [Singulair] 10 mg PO QHS #30 tablet 01/18/19 Unknown Rx Pantoprazole [Protonix TAB] 40 mg PO BID #14 tablet 01/18/19 Unknown Rx Benzonatate [Tessalon Perles] 100 mg PO Q8HR PRN #30 capsule 02/13/19 Unknown Rx levoFLOXacin [Levaquin] 750 mg PO QDAY #7 tablet 02/13/19 Unknown Rx methylPREDNISolone [Medrol 4MG 1 dose PO DAILY #1 tab.ds.pk 02/13/19 Unknown Rx DOSEPAK (21 tabs)] Allergies Allergy/AdvReac Type Severity Reaction Status Date / Time ibuprofen [From Motrin] AdvReac Itching Verified 12/22/18 22:39 ED Review of Systems ROS: Stated complaint: GUTIERREZ Other details as noted in HPI Comment: All other systems reviewed and negative ED Past Medical Hx - Past Medical History Hx Congestive Heart Failure: No Hx Diabetes: No Hx Asthma: Yes Hx COPD: No Additional medical history: pneumonia - Surgical History Past Surgical History?: No - Social History Smoking Status: Never Smoker Substance Use Type: None - Medications Home Medications: Home Medications Medication Instructions Recorded Confirmed Last Taken Type ALBUTEROL Inhaler (OR & NICU) 2 puff IH Q4H PRN #1 unit 01/18/19 Unknown Rx [ProAir HFA Inhaler] Budesonide/Formoterol Fumarate 2 puff IH BID #1 unit 01/18/19 Unknown Rx [Symbicort 160-4.5 Mcg Inhaler] Montelukast [Singulair] 10 mg PO QHS #30 tablet 01/18/19 Unknown Rx Pantoprazole [Protonix TAB] 40 mg PO BID #14 tablet 01/18/19 Unknown Rx Benzonatate [Tessalon Perles] 100 mg PO Q8HR PRN #30 capsule 02/13/19 Unknown Rx levoFLOXacin [Levaquin] 750 mg PO QDAY #7 tablet 02/13/19 Unknown Rx methylPREDNISolone [Medrol 4MG 1 dose PO DAILY #1 tab.ds.pk 02/13/19 Unknown Rx DOSEPAK (21 tabs)] ED Physical Exam - General Limitations: No Limitations - Other Other exam information: General: No limitations, patient is alert in no acute distress Head exam: Atraumatic, normocephalic Eyes exam: Normal appearance, pupils equal reactive to light, extraocular movements intact ENT: Moist mucous membrane, normal oropharynx Neck exam: Normal inspection, full range of motion, no meningismus nontender Respiratory exam:A muscle use, not persisted expiratory wheezing. Significant tachypnea Cardiovascular: Normal rate and rhythm, normal heart sounds Abdomen: Soft, nondistended, and nontender, with normal bowel sounds, no rebound, or guarding Extremity: Full range of motion normal inspection no deformity Back: Normal Inspection, full range of motion, no tenderness Neurologic: Alert, oriented x3, cranial nerves intact, no motor or sensory deficit Psychiatric: normal affect, normal mood Skin: Warm, dry, intact ED Course Vital Signs 02/12/19 02/12/19 02/12/19 18:40 18:41 18:46 Temperature 99.7 F H Pulse Rate 97 H 91 H Pulse Rate [ Bilateral Throughout] Respiratory 16 24 Rate Respiratory Rate [Bilateral Throughout] Blood Pressure 134/79 134/79 134/79 Blood Pressure [Left] O2 Sat by Pulse 94 Oximetry 02/12/19 02/12/19 02/12/19 19:00 19:15 19:30 Temperature 100.3 F H Pulse Rate 102 H 94 H 95 H Pulse Rate [ Bilateral Throughout] Respiratory 21 28 H 16 Rate Respiratory Rate [Bilateral Throughout] Blood Pressure 136/81 143/94 143/94 Blood Pressure 146/82 [Left] O2 Sat by Pulse 94 90 95 Oximetry 02/12/19 02/12/19 02/12/19 19:46 20:14 20:15 Temperature Pulse Rate 88 94 H 92 H Pulse Rate [ Bilateral Throughout] Respiratory 20 21 23 Rate Respiratory Rate [Bilateral Throughout] Blood Pressure 146/94 151/85 138/87 Blood Pressure [Left] O2 Sat by Pulse 92 Oximetry 02/12/19 02/12/19 02/12/19 20:30 20:40 20:46 Temperature Pulse Rate 98 H 83 Pulse Rate [ 90 Bilateral Throughout] Respiratory 20 26 H Rate Respiratory 20 Rate [Bilateral Throughout] Blood Pressure 138/87 152/83 Blood Pressure [Left] O2 Sat by Pulse 99 Oximetry 02/12/19 02/12/19 02/12/19 21:00 21:13 21:15 Temperature Pulse Rate 103 H 97 H Pulse Rate [ 108 H Bilateral Throughout] Respiratory 25 H 30 H Rate Respiratory 22 Rate [Bilateral Throughout] Blood Pressure 151/95 144/88 Blood Pressure [Left] O2 Sat by Pulse 100 Oximetry 02/12/19 02/12/19 02/12/19 21:31 21:46 22:00 Temperature Pulse Rate 102 H Pulse Rate [ Bilateral Throughout] Respiratory 20 27 H 12 Rate Respiratory Rate [Bilateral Throughout] Blood Pressure 133/81 133/81 141/77 Blood Pressure [Left] O2 Sat by Pulse 95 96 Oximetry 02/12/19 02/12/19 02/12/19 22:16 22:21 22:30 Temperature 99.1 F Pulse Rate 85 90 87 Pulse Rate [ Bilateral Throughout] Respiratory 21 21 20 Rate Respiratory Rate [Bilateral Throughout] Blood Pressure 141/79 140/78 Blood Pressure 146/82 [Left] O2 Sat by Pulse 89 94 90 Oximetry 02/12/19 02/12/19 02/12/19 22:45 23:00 23:15 Temperature Pulse Rate 91 H 87 84 Pulse Rate [ Bilateral Throughout] Respiratory 17 20 26 H Rate Respiratory Rate [Bilateral Throughout] Blood Pressure 147/92 130/85 143/63 Blood Pressure [Left] O2 Sat by Pulse 81 L 95 88 Oximetry 02/12/19 02/12/19 02/12/19 23:30 23:31 23:45 Temperature Pulse Rate 98 H 84 Pulse Rate [ Bilateral Throughout] Respiratory 22 20 Rate Respiratory Rate [Bilateral Throughout] Blood Pressure 135/69 149/91 Blood Pressure [Left] O2 Sat by Pulse 97 95 96 Oximetry 02/12/19 02/13/19 02/13/19 23:58 00:00 00:16 Temperature 98.4 F Pulse Rate 89 71 78 Pulse Rate [ Bilateral Throughout] Respiratory 20 22 22 Rate Respiratory Rate [Bilateral Throughout] Blood Pressure 154/86 163/88 Blood Pressure 149/91 [Left] O2 Sat by Pulse 96 96 95 Oximetry 02/13/19 02/13/19 02/13/19 00:30 00:46 01:00 Temperature Pulse Rate 83 73 85 Pulse Rate [ Bilateral Throughout] Respiratory 18 20 19 Rate Respiratory Rate [Bilateral Throughout] Blood Pressure 169/97 134/84 139/85 Blood Pressure [Left] O2 Sat by Pulse 97 96 97 Oximetry - Reevaluation(s) Reevaluation #1: 02/12/19 23:56 Patient states he is feeling much better with ED treatment. No wheezing at this time. Patient's sats go down to 91% while sleeping up to 97% on room air while awake. He states he has known history of sleep apnea and does not use a CPAP machine. ED Medical Decision Making - Lab Data Result diagrams: 02/12/19 20:15 02/12/19 20:15 Lab Results 02/12/19 02/12/19 02/12/19 Range/Units 20:15 20:15 20:15 WBC 7.4 (4.5-11.0) K/mm3 RBC 4.61 (3.65-5.03) M/mm3 Hgb 14.5 (11.8-15.2) gm/dl Hct 43.4 (35.5-45.6) % MCV 94 (84-94) fl MCH 31 (28-32) pg MCHC 33 (32-34) % RDW 14.9 (13.2-15.2) % Plt Count 240 (140-440) K/mm3 Add Manual Diff Complete Total Counted 100 Seg Neutrophils % [employer] Seg Neuts % (Manual) 94.0 H (40.0-70.0) % Band Neutrophils % 0 % Lymphocytes % (Manual) 3.0 L (13.4-35.0) % Reactive Lymphs % (Man) 0 % Monocytes % (Manual) 3.0 (0.0-7.3) % Eosinophils % (Manual) 0 (0.0-4.3) % Basophils % (Manual) 0 (0.0-1.8) % Metamyelocytes % 0 % Myelocytes % 0 % Promyelocytes % 0 % Blast Cells % 0 % Nucleated RBC % Not Reportable Seg Neutrophils # Man 7.0 (1.8-7.7) K/mm3 Band Neutrophils # 0.0 K/mm3 Lymphocytes # (Manual) 0.2 L (1.2-5.4) K/mm3 Abs React Lymphs (Man) 0.0 K/mm3 Monocytes # (Manual) 0.2 (0.0-0.8) K/mm3 Eosinophils # (Manual) 0.0 (0.0-0.4) K/mm3 Basophils # (Manual) 0.0 (0.0-0.1) K/mm3 Metamyelocytes # 0.0 K/mm3 Myelocytes # 0.0 K/mm3 Promyelocytes # 0.0 K/mm3 Blast Cells # 0.0 K/mm3 WBC Morphology Not Reportable Hypersegmented Neuts Not Reportable Hyposegmented Neuts Not Reportable Hypogranular Neuts Not Reportable Smudge Cells Not Reportable Toxic Granulation Not Reportable Toxic Vacuolation Not Reportable Dohle Bodies Not Reportable Pelger-Huet Anomaly Not Reportable Kandy Rods Not Reportable Platelet Estimate Consistent w auto Clumped Platelets Not Reportable Plt Clumps, EDTA Not Reportable Large Platelets 1+ Giant Platelets Not Reportable Platelet Satelliting Not Reportable Plt Morphology Comment Not Reportable RBC Morphology Normal Dimorphic RBCs Not Reportable Polychromasia Not Reportable Hypochromasia Not Reportable Poikilocytosis Not Reportable Anisocytosis Not Reportable Microcytosis Not Reportable Macrocytosis Not Reportable Spherocytes Not Reportable Pappenheimer Bodies Not Reportable Sickle Cells Not Reportable Target Cells Not Reportable Tear Drop Cells Not Reportable Ovalocytes Not Reportable Helmet Cells Not Reportable [place] Bodies Not Reportable [place] Rings Not Reportable Victorina Cells Not Reportable Bite Cells Not Reportable Crenated Cell Not Reportable Elliptocytes Not Reportable Acanthocytes (Spur) Not Reportable Rouleaux Not Reportable Hemoglobin C Crystals Not Reportable Schistocytes Not Reportable Malaria parasites Not Reportable Prasad Bodies Not Reportable Hem Pathologist Commnt No VBG pH (7.320-7.420) Sodium 139 (137-145) mmol/L Potassium 4.2 (3.6-5.0) mmol/L Chloride 102.2 (98-107) mmol/L Carbon Dioxide 23 (22-30) mmol/L Anion Gap 18 mmol/L BUN 5 L (9-20) mg/dL Creatinine 0.9 (0.8-1.5) mg/dL Estimated GFR > 60 ml/min BUN/Creatinine Ratio 6 % Glucose 133 H (75-100) mg/dL Lactic Acid 3.30 H* (0.7-2.0) mmol/L Calcium 9.5 (8.4-10.2) mg/dL Total Bilirubin 0.40 (0.1-1.2) mg/dL AST 19 (5-40) units/L ALT 26 (7-56) units/L Alkaline Phosphatase 45 (35-129) units/L Total Protein 7.2 (6.3-8.2) g/dL Albumin 4.4 (3.9-5) g/dL Albumin/Globulin Ratio 1.6 % Urine Color (Yellow) Urine Turbidity (Clear) Urine pH (5.0-7.0) Ur Specific [place] (1.003-1.030) Urine Protein (Negative) mg/dL Urine Glucose (UA) (Negative) mg/dL Urine Ketones (Negative) mg/dL Urine Blood (Negative) Urine Nitrite (Negative) Urine Bilirubin (Negative) Urine Urobilinogen (<2.0) mg/dL Ur Leukocyte Esterase (Negative) Urine WBC (Auto) (0.0-6.0) /HPF Urine RBC (Auto) (0.0-6.0) /HPF U Epithel Cells (Auto) (0-13.0) /HPF Urine Mucus /HPF 02/12/19 02/12/19 02/12/19 Range/Units 20:15 20:59 23:03 WBC (4.5-11.0) K/mm3 RBC (3.65-5.03) M/mm3 Hgb (11.8-15.2) gm/dl Hct (35.5-45.6) % MCV (84-94) fl MCH (28-32) pg MCHC (32-34) % RDW (13.2-15.2) % Plt Count (140-440) K/mm3 Add Manual Diff Total Counted Seg Neutrophils % Seg Neuts % (Manual) (40.0-70.0) % Band Neutrophils % % Lymphocytes % (Manual) (13.4-35.0) % Reactive Lymphs % (Man) % Monocytes % (Manual) (0.0-7.3) % Eosinophils % (Manual) (0.0-4.3) % Basophils % (Manual) (0.0-1.8) % Metamyelocytes % % Myelocytes % % Promyelocytes % % Blast Cells % % Nucleated RBC % Seg Neutrophils # Man (1.8-7.7) K/mm3 Band Neutrophils # K/mm3 Lymphocytes # (Manual) (1.2-5.4) K/mm3 Abs React Lymphs (Man) K/mm3 Monocytes # (Manual) (0.0-0.8) K/mm3 Eosinophils # (Manual) (0.0-0.4) K/mm3 Basophils # (Manual) (0.0-0.1) K/mm3 Metamyelocytes # K/mm3 Myelocytes # K/mm3 Promyelocytes # K/mm3 Blast Cells # K/mm3 WBC Morphology Hypersegmented Neuts Hyposegmented Neuts Hypogranular Neuts Smudge Cells Toxic Granulation Toxic Vacuolation Dohle Bodies Pelger-Huet Anomaly Kandy Rods Platelet Estimate Clumped Platelets Plt Clumps, EDTA Large Platelets Giant Platelets Platelet Satelliting Plt Morphology Comment RBC Morphology Dimorphic RBCs Polychromasia Hypochromasia Poikilocytosis Anisocytosis Microcytosis Macrocytosis Spherocytes Pappenheimer Bodies Sickle Cells Target Cells Tear Drop Cells Ovalocytes Helmet Cells [place] Bodies [place] Rings Victorina Cells Bite Cells Crenated Cell Elliptocytes Acanthocytes (Spur) Rouleaux Hemoglobin C Crystals Schistocytes Malaria parasites Prasad Bodies Hem Pathologist Commnt VB pH 7.439 H (7.320-7.420) Sodium (137-145) mmol/L Potassium (3.6-5.0) mmol/L Chloride (98-107) mmol/L Carbon Dioxide (22-30) mmol/L Anion Gap mmol/L BUN (9-20) mg/dL Creatinine (0.8-1.5) mg/dL Estimated GFR ml/min BUN/Creatinine Ratio % Glucose (75-100) mg/dL Lactic Acid 3.70 H* (0.7-2.0) mmol/L Calcium (8.4-10.2) mg/dL Total Bilirubin (0.1-1.2) mg/dL AST (5-40) units/L ALT (7-56) units/L Alkaline Phosphatase (35-129) units/L Total Protein (6.3-8.2) g/dL Albumin (3.9-5) g/dL Albumin/Globulin Ratio % Urine Color Yellow (Yellow) Urine Turbidity Clear (Clear) Urine pH 7.0 (5.0-7.0) Ur Specific [place] 1.009 (1.003-1.030) Urine Protein <15 mg/dl (Negative) mg/dL Urine Glucose (UA) Neg (Negative) mg/dL Urine Ketones Neg (Negative) mg/dL Urine Blood Sm (Negative) Urine Nitrite Neg (Negative) Urine Bilirubin Neg (Negative) Urine Urobilinogen < 2.0 (<2.0) mg/dL Ur Leukocyte Esterase Neg (Negative) Urine WBC (Auto) < 1.0 (0.0-6.0) /HPF Urine RBC (Auto) 1.0 (0.0-6.0) /HPF U Epithel Cells (Auto) < 1.0 (0-13.0) /HPF Urine Mucus Few /HPF - EKG Data -: EKG Interpreted by Al EKG shows normal: sinus rhythm, axis (qrs 59), QRS complexes (qrsd 100), ST-T waves (no stemi) - EKG Data When compared to previous EKG there are: previous EKG unavailable - Radiology Data Radiology results: report reviewed CHEST 2 VIEWS INDICATION / CLINICAL INFORMATION: fever cough. COMPARISON: 01/16/2019 FINDINGS: SUPPORT DEVICES: None. HEART / MEDIASTINUM: No significant abnormality. LUNGS / PLEURA: There is a bulla at the left lung base unchanged. The left lung is otherwise clear. There is new area of consolidation in the lateral aspect of the right upper lobe however consistent with small area of acute pneumonia. The right lung is otherwise clear. No adenopathy or associated effusion. No pneumothorax. ADDITIONAL FINDINGS: No significant additional findings. IMPRESSION: 1. New right lung pneumonia. - Medical Decision Making Patient states he feels much better with ED treatment. Patient received Roce phin, azithromycin, 2 L of normal saline, and a DuoNeb. Lactic acid is noted to be elevated however, patient does not have any other clinical signs of severe sepsis or septic shock. He will be discharged on antibiotics for pneumonia as well as steroids. He does not need a refill in his bronchodilators at this time. - Differential Diagnosis asthma, Bronchitis, viral syndrome Critical Care Time: No Critical care attestation.: If time is entered above; I have spent that time in minutes in the direct care of this critically ill patient, excluding procedure time. ED Disposition Clinical Impression: Asthma exacerbation, Pneumonia Disposition: TO HOME OR SELFCARE Is pt being admited?: No Does the pt Need Aspirin: No Condition: Stable Instructions: Asthma (ED), Community-acquired Pneumonia (ED) Additional Instructions: Take the medication as prescribed. Follow up with your doctor or the clinic/doctor provided. Return if symptoms worsen as indicated by your discharge instructions Prescriptions: levoFLOXacin [Levaquin] 750 mg PO QDAY #7 tablet methylPREDNISolone [Medrol 4MG DOSEPAK (21 tabs)] 1 dose PO DAILY #1 tab.ds.pk Benzonatate [Tessalon Perles] 100 mg PO Q8HR PRN #30 capsule PRN Reason: Cough Referrals: LEONORA COLES MD [Primary Care Provider] - 3-5 Days Time of Disposition: 01:33
--- NOTE | 2019-02-12 20:22 | XRay Report ---
CHEST 2 VIEWS INDICATION / CLINICAL INFORMATION: fever cough. COMPARISON: 01/16/2019 FINDINGS: SUPPORT DEVICES: None. HEART / MEDIASTINUM: No significant abnormality. LUNGS / PLEURA: There is a bulla at the left lung base unchanged. The left lung is otherwise clear. T here is new area of consolidation in the lateral aspect of the right upper lobe however consistent wi th small area of acute pneumonia. The right lung is otherwise clear. No adenopathy or associated effu yohan. No pneumothorax. ADDITIONAL FINDINGS: No significant additional findings. IMPRESSION: 1. New right lung pneumonia. Signer Name: Jenaro Ocampo MD Signed: 02/12/2019 8:18 PM Workstation Name: [id number]
[2019-02-12 20:28] LABS: Hematocrit 43.4 % (35.5-45.6); Hemoglobin 14.5 gm/dl (11.8-15.2); Mean Corpuscular HGB Conc 33 % (32-34); Mean Corpuscular Volume 94 fl (84-94); Platelet Count 240 K/mm3 (140-440); Red Blood Count 4.61 M/mm3 (3.65-5.03); Red Cell Distribution Width 14.9 % (13.2-15.2)
[2019-02-12] MEDS ORDERED: ATROVENT IH ONE (20:32)
[2019-02-12] MEDS ORDERED: PROVENTIL IH ONE (20:32)
[2019-02-12 20:59] LABS: Alanine Aminotransferase 26 units/L (7-56); Albumin 4.4 g/dL (3.9-5); BUN/Creatinine Ratio 6; Blood Urea Nitrogen 5 mg/dL (9-20); Calcium 9.5 mg/dL (8.4-10.2); Hemolysis Index 3
[2019-02-12] MEDS ORDERED: ROCEPHIN/NS 1 GM/50 ML 1 GM/50 ML BAG IV ONE (20:59)
[2019-02-12 21:18] LABS: Bilirubin,Urine NEG (Negative); Blood,Urine SM (Negative); Color,Urine Yellow (Yellow); Mucus,Urine FEW /HPF; Protein,Urine <15 mg/dL mg/dL (Negative); Urobilinogen,Urine < 2.0 mg/dL (<2.0)
[2019-02-12 21:20] LABS: WBC,Urine < 1.0 /HPF (0.0-6.0)
[2019-02-12 22:13] LABS: Basophils % (Manual) 0 % (0.0-1.8); Eosinophils % (Manual) 0 % (0.0-4.3); Large Platelets 1+; Platelet Estimate Consistent w Auto; RBC Morphology Normal; Total Cells Counted 100
[2019-02-12] MEDS ORDERED: ZOFRAN IM ONE (23:41)
[2019-02-13 01:08] VITALS: BP 139/85
== END 2019-02-13 01:44 | disposition home or self-care (01) ==
LOC: ED 18:23
DX: J45.901 Unspecified asthma with (acute) exacerbation (principal); J18.9 Pneumonia, unspecified organism; Z79.899 Other long term (current) drug therapy; Z88.8 Allergy status to other drugs, medicaments and biological substances
CPT/HCPCS: 36415; 71046; 80053; 81001; 82140; 82805; 85007; 85025; 87040; 93005; 93010; 94644; 96365; 96367; 99284; J0456; J0696; J7030; J7050

== ENCOUNTER 2019-09-04 00:55 | Emergency (ER) | payer SELFPAY ==
[2019-09-04] MEDS ORDERED: SODIUM CHLORIDE 0.9% 1000 ML IV SOLN IV ONE (01:33)
[2019-09-04] MEDS ORDERED: ACETAMINOPHEN 325 MG TAB PO ONE (01:34)
[2019-09-04] MEDS ORDERED: ALBUTEROL 2.5 MG/3 ML NEBU IH ONE (01:34)
[2019-09-04] MEDS ORDERED: IPRATROPIUM 0.02% NEBU 2.5 ML IH ONE (01:34)
--- NOTE | 2019-09-04 01:45 | XRay Report ---
CHEST 1 VIEW INDICATION: Chest Pain. COMPARISON: 02/12/2019 FINDINGS: Support devices: None. Heart: Within normal limits. Lungs/Pleura: No acute air space or interstitial disease. Additional findings: None. IMPRESSION: 1. No acute findings. Signer Name: Ed Chavez MD Signed: 09/04/2019 1:41 AM Workstation Name: [id number]
[2019-09-04] MEDS ORDERED: traMADol 50 MG TAB PO ONE (01:48)
[2019-09-04] MEDS ORDERED: BENZONATATE 100 MG CAP PO ONE ×2 (01:48→05:10)
[2019-09-04] MEDS ORDERED: methylPREDNISolone Sod Succinate 125 MG/2 ML INJ IV ONE (01:48)
[2019-09-04 02:31] LABS: Basophils % (Auto) 0.6 % (0.0-1.8); Eosinophils % (Auto) 0.5 % (0.0-4.3); Hematocrit 39.7 % (35.5-45.6); Hemoglobin 13.2 gm/dl (11.8-15.2); Lymphocytes # (Auto) 1.7 K/mm3 (1.2-5.4); Lymphocytes % (Auto) 27.2 % (13.4-35.0); Mean Corpuscular HGB Conc 33 % (32-34); Mean Corpuscular Volume 91 fl (84-94); Monocytes # (Auto) 0.5 K/mm3 (0.0-0.8); Monocytes % (Auto) 7.9 % (0.0-7.3); Platelet Count 179 K/mm3 (140-440); Red Blood Count 4.37 M/mm3 (3.65-5.03); Red Cell Distribution Width 17.1 % (13.2-15.2)
[2019-09-04 02:47] LABS: BUN/Creatinine Ratio 13; Blood Urea Nitrogen 12 mg/dL (9-20); Calcium 9.2 mg/dL (8.4-10.2); Hemolysis Index 13
--- NOTE | 2019-09-04 04:22 | Emergency Department Report ---
ED Fever HPI - General Chief Complaint: Fever Stated Complaint: FLU SYMPTOMS Time Seen by Provider: 09/04/19 01:33 Source: patient Exam Limitations: no limitations - History of Present Illness Initial Comments: 44-year-old male with a past medical history of asthma with one previous intubation presents to the Hospital complaining of fever, cough, body aches 2 days. Cough initially productive benign dry. Patient having chest pain with coughing and complaining of shortness of breath 2 into increased episodes of wheezing. Patient did receive his flu shot. He denies any recent international travel or exposure to people traveling from [place]. ED Review of Systems ROS: Stated complaint: FLU SYMPTOMS Other details as noted in HPI Comment: All other systems reviewed and negative ED Past Medical Hx - Past Medical History Previous Medical History?: Yes Hx Congestive Heart Failure: No Hx Diabetes: No Hx Asthma: Yes (hx of intubation) Hx COPD: No Additional medical history: pneumonia - Surgical History Past Surgical History?: Yes Additional Surgical History: hernia repair - Social History Smoking Status: Never Smoker - Medications Home Medications: Home Medications Medication Instructions Recorded Confirmed Last Taken Type Albuterol INH(or & Nicu Only) 2 puff IH Q4H PRN #1 unit 01/18/19 Unknown Rx [ProAir HFA Inhaler] Budesonide/Formoterol Fumarate 2 puff IH BID #1 unit 01/18/19 Unknown Rx [Symbicort 160-4.5 Mcg Inhaler] Montelukast [Singulair] 10 mg PO QHS #30 tablet 01/18/19 Unknown Rx Pantoprazole [Protonix TAB] 40 mg PO BID #14 tablet 01/18/19 Unknown Rx Benzonatate [Tessalon Perles] 100 mg PO Q8HR PRN #30 capsule 02/13/19 Unknown Rx levoFLOXacin [Levaquin] 750 mg PO QDAY #7 tablet 02/13/19 Unknown Rx methylPREDNISolone [Medrol 4MG 1 dose PO DAILY #1 tab.ds.pk 02/13/19 Unknown Rx DOSEPAK (21 tabs)] Acetaminophen [Acetaminophen 8 650 mg PO Q8HR PRN #20 tablet.er 09/04/19 Unknown Rx Hour] Azithromycin [Zithromax Z-JAILYN] 1 dose PO DAILY 5 Days tab 09/04/19 Unknown Rx Benzonatate [Tessalon Perles] 100 mg PO Q8HR #20 capsule 09/04/19 Unknown Rx Prednisone [predniSONE 10 mg 10 mg PO .TAPER #1 tab.ds.pk 09/04/19 Unknown Rx (6-Day Pack, 21 Tabs)] traMADoL [Ultram 50 MG tab] 50 mg PO Q6HR PRN #14 tablet 09/04/19 Unknown Rx ED Physical Exam - General Limitations: No Limitations - Other Other exam information: General: No limitations, patient is alert in no acute distress Head exam: Atraumatic, normocephalic Eyes exam: Normal appearance ENT: Moist mucous membrane Neck exam: Normal inspection, full range of motion Respiratory exam: Diminished breath sounds bilaterally, mild tachypnea Cardiovascular:tachycardia regular rhythm Abdomen: Soft, nondistended, and nontender, with normal bowel sounds, no rebound, or guarding, Extremity: No deformity , no calf tenderness or leg edema Back: Normal Inspection Neurologic: Alert, oriented x3, speech clear, no gross motor or sensory deficit Psychiatric: Normal mood, affect Skin: No rash ED Course Vital Signs 09/04/19 09/04/19 09/04/19 00:57 01:00 01:25 Temperature 100.5 F H 102.6 F H Pulse Rate 107 H Respiratory 26 H Rate Blood Pressure 120/75 Blood Pressure [Left] O2 Sat by Pulse 98 97 Oximetry 09/04/19 09/04/19 09/04/19 01:30 01:46 02:00 Temperature Pulse Rate 108 H 104 H 94 H Respiratory 24 17 27 H Rate Blood Pressure 128/67 128/67 127/72 Blood Pressure [Left] O2 Sat by Pulse 93 95 Oximetry 09/04/19 09/04/19 09/04/19 02:16 02:30 02:46 Temperature Pulse Rate 97 H 93 H 96 H Respiratory 39 H 32 H 30 H Rate Blood Pressure 127/72 127/70 127/72 Blood Pressure [Left] O2 Sat by Pulse 99 91 98 Oximetry 09/04/19 09/04/19 09/04/19 03:00 03:16 03:30 Temperature Pulse Rate 99 H 99 H 92 H Respiratory 31 H 29 H 24 Rate Blood Pressure 131/68 127/70 128/66 Blood Pressure 128/66 [Left] O2 Sat by Pulse 90 98 98 Oximetry 09/04/19 04:00 Temperature 99.2 F Pulse Rate 95 H Respiratory 26 H Rate Blood Pressure Blood Pressure 130/71 [Left] O2 Sat by Pulse 98 Oximetry ED Medical Decision Making - Lab Data Result diagrams: 09/04/19 01:41 09/04/19 01:41 Lab Results 09/04/19 09/04/19 09/04/19 Range/Units 01:41 01:41 01:41 WBC 6.4 (4.5-11.0) K/mm3 RBC 4.37 (3.65-5.03) M/mm3 Hgb 13.2 (11.8-15.2) gm/dl Hct 39.7 (35.5-45.6) % MCV 91 (84-94) fl MCH 30 (28-32) pg MCHC 33 (32-34) % RDW 17.1 H (13.2-15.2) % Plt Count 179 (140-440) K/mm3 Lymph % (Auto) 27.2 (13.4-35.0) % Dolores % (Auto) 7.9 H (0.0-7.3) % Eos % (Auto) 0.5 (0.0-4.3) % Baso % (Auto) 0.6 (0.0-1.8) % Lymph # 1.7 (1.2-5.4) K/mm3 Dolores # 0.5 (0.0-0.8) K/mm3 Eos # 0.0 (0.0-0.4) K/mm3 Baso # 0.0 (0.0-0.1) K/mm3 Seg Neutrophils % 63.8 (40.0-70.0) % Seg Neutrophils # 4.1 (1.8-7.7) K/mm3 VBG pH (7.320-7.420) Sodium 138 (137-145) mmol/L Potassium 3.8 (3.6-5.0) mmol/L Chloride 103.3 (98-107) mmol/L Carbon Dioxide 21 L (22-30) mmol/L Anion Gap 18 mmol/L BUN 12 (9-20) mg/dL Creatinine 0.9 (0.8-1.5) mg/dL Estimated GFR > 60 ml/min BUN/Creatinine Ratio 13 % Glucose 119 H (75-100) mg/dL Lactic Acid 1.30 (0.7-2.0) mmol/L Calcium 9.2 (8.4-10.2) mg/dL Troponin T < 0.010 (0.00-0.029) ng/mL 09/04/19 Range/Units 01:41 WBC (4.5-11.0) K/mm3 RBC (3.65-5.03) M/mm3 Hgb (11.8-15.2) gm/dl Hct (35.5-45.6) % MCV (84-94) fl MCH (28-32) pg MCHC (32-34) % RDW (13.2-15.2) % Plt Count (140-440) K/mm3 Lymph % (Auto) (13.4-35.0) % Dolores % (Auto) (0.0-7.3) % Eos % (Auto) (0.0-4.3) % Baso % (Auto) (0.0-1.8) % Lymph # (1.2-5.4) K/mm3 Dolores # (0.0-0.8) K/mm3 Eos # (0.0-0.4) K/mm3 Baso # (0.0-0.1) K/mm3 Seg Neutrophils % (40.0-70.0) % Seg Neutrophils # (1.8-7.7) K/mm3 VBG pH 7.444 H (7.320-7.420) Sodium (137-145) mmol/L Potassium (3.6-5.0) mmol/L Chloride (98-107) mmol/L Carbon Dioxide (22-30) mmol/L Anion Gap mmol/L BUN (9-20) mg/dL Creatinine (0.8-1.5) mg/dL Estimated GFR ml/min BUN/Creatinine Ratio % Glucose (75-100) mg/dL Lactic Acid (0.7-2.0) mmol/L Calcium (8.4-10.2) mg/dL Troponin T (0.00-0.029) ng/mL - EKG Data -: EKG Interpreted by Mi EKG shows normal: sinus rhythm, ST-T waves (no stemi) Rate: tachycardia (101) - Radiology Data Radiology results: report reviewed CHEST 1 VIEW INDICATION: Chest Pain. COMPARISON: 02/12/2019 FINDINGS: Support devices: None. Heart: Within normal limits. Lungs/Pleura: No acute air space or interstitial disease. Additional findings: None. IMPRESSION: 1. No acute findings. - Medical Decision Making pt reports feeling much better after ed tx breathing/sob improved no signs of sepsis, septic shock, or pneumonia pt has a PMD visit scheduled for 2pm today (copy of results will be provided). pt will be tx for viral illness and asthmatic bronchitis pt will be covered with zpack repeat trop/lactic acid remain neg - Differential Diagnosis bronchitis, pneumonia, viral illness, flu Critical Care Time: No Critical care attestation.: If time is entered above; I have spent that time in minutes in the direct care of this critically ill patient, excluding procedure time. ED Disposition Clinical Impression: Viral illness, Acute bronchitis with asthma Disposition: TO HOME OR SELFCARE Is pt being admited?: No Does the pt Need Aspirin: No Condition: Stable Instructions: Acute Bronchitis (ED), Viral Syndrome (ED) Additional Instructions: Take the medication as prescribed. Follow-up with your doctor or with the doctor/clinic provided. Return if symptoms worsen as indicated by your discharge instructions. Prescriptions: Acetaminophen [Acetaminophen 8 Hour] 650 mg PO Q8HR PRN #20 tablet.er PRN Reason: Fever >101 Prednisone [predniSONE 10 mg (6-Day Pack, 21 Tabs)] 10 mg PO .TAPER #1 tab.ds.pk Benzonatate [Tessalon Perles] 100 mg PO Q8HR #20 capsule traMADoL [Ultram 50 MG tab] 50 mg PO Q6HR PRN #14 tablet PRN Reason: Pain Azithromycin [Zithromax Z-JAILYN] 1 dose PO DAILY 5 Days tab Referrals: your, doctor [Other] - 09/04/19 2:00 pm Forms: Work/School Release Form(ED)
[2019-09-04 05:38] VITALS: BP 123/71
== END 2019-09-04 06:10 | disposition home or self-care (01) ==
LOC: ED 00:55
DX: J44.9 Chronic obstructive pulmonary disease, unspecified (principal); B34.9 Viral infection, unspecified; Z79.899 Other long term (current) drug therapy; Z88.6 Allergy status to analgesic agent
CPT/HCPCS: 36415; 71045; 80048; 82140; 82805; 82962; 84484; 85025; 87040; 93005; 93010; 96374; 99284; J2930; J7030; 94640

== ENCOUNTER 2019-09-07 13:22 | Emergency (ER) | payer SELFPAY ==
[2019-09-07] MEDS ORDERED: ALBUTEROL 2.5 MG/3 ML NEBU IH ONE (13:43)
[2019-09-07] MEDS ORDERED: IPRATROPIUM 0.02% NEBU 2.5 ML IH ONE (13:43)
--- NOTE | 2019-09-07 13:44 | Event Note ---
ED Screening Note Date of service: 09/07/19 Time: 13:45 ED Screening Note: 44 yo M w/ hx asthma presents to ED with cough, SOB, fever since yesterday. Ran out of inhaler. Pt was given neb treatment by EMS. This initial assessment/diagnostic orders/clinical plan/treatment(s) is/are subject to change based on patients health status, clinical progression and re- assessment by fellow clinical providers in the ED. Further treatment and workup at subsequent clinical providers discretion. Patient/guardian urged not to elope from the ED as their condition may be serious if not clinically assessed and managed. Initial orders include: CXR rapid flu tylenol neb treatment solumedrol
--- NOTE | 2019-09-07 14:21 | XRay Report ---
CHEST 2 VIEWS INDICATION / CLINICAL INFORMATION: MAIN: cough, sob, fever FOR ABOUT 3 DAYS. COMPARISON: 09/04/2019 FINDINGS: SUPPORT DEVICES: None. HEART / MEDIASTINUM: No significant abnormality. LUNGS / PLEURA: Bullous changes are identified in the lingular segment of the left upper lobe. No new or acute disease. No pneumothorax. ADDITIONAL FINDINGS: No significant additional findings. IMPRESSION: 1. No acute findings. Signer Name: Willy Greer MD Signed: 09/07/2019 2:16 PM Workstation Name: [id number]
[2019-09-07] MEDS: methylPREDNISolone Sod Succinate 125 MG/2 ML INJ IV ONE (14:59)
[2019-09-07] MEDS: ACETAMINOPHEN 500 MG TAB PO ONE (14:59)
[2019-09-07] MEDS ORDERED: IPRATROPIUM/ALBUTEROL SULFATE 3 ML AMPUL.NEB IH ONE (15:02)
[2019-09-07] MEDS: IPRATROPIUM/ALBUTEROL SULFATE 3 ML AMPUL.NEB IH ONE (16:08)
--- NOTE | 2019-09-07 16:27 | Emergency Department Report ---
ED Shortness of Breath HPI - General Chief Complaint: Dyspnea/Respdistress Stated Complaint: GUTIERREZ Time Seen by Provider: 09/07/19 16:15 Source: patient Mode of arrival: Ambulatory Limitations: No Limitations - History of Present Illness MD Complaint: shortness of breath, cough (with wheezing, chest congestion and scant mucus production) -: days(s) Consistency: constant Improves With: nothing Worsens With: nothing Known History Of: asthma Context: recent illness Associated Symptoms: cough, sputum production, other (no hemoptysis, hematemesis, no nausea, vomiting, no diarrhea, no palpitations, no abdominal pain, no rashes, no polyuria or polydipsia) - Related Data Previous Rx's Medication Instructions Recorded Last Taken Type Budesonide/Formoterol Fumarate 2 puff IH BID #1 unit 01/18/19 Unknown Rx [Symbicort 160-4.5 Mcg Inhaler] Montelukast [Singulair] 10 mg PO QHS #30 tablet 01/18/19 Unknown Rx Pantoprazole [Protonix TAB] 40 mg PO BID #14 tablet 01/18/19 Unknown Rx Benzonatate [Tessalon Perles] 100 mg PO Q8HR PRN #30 capsule 02/13/19 Unknown Rx levoFLOXacin [Levaquin] 750 mg PO QDAY #7 tablet 02/13/19 Unknown Rx methylPREDNISolone [Medrol 4MG 1 dose PO DAILY #1 tab.ds.pk 02/13/19 Unknown Rx DOSEPAK (21 tabs)] Acetaminophen [Acetaminophen 8 650 mg PO Q8HR PRN #20 tablet.er 09/04/19 Unknown Rx Hour] Azithromycin [Zithromax Z-JAILYN] 1 dose PO DAILY 5 Days tab 09/04/19 Unknown Rx Prednisone [predniSONE 10 mg 10 mg PO .TAPER #1 tab.ds.pk 09/04/19 Unknown Rx (6-Day Pack, 21 Tabs)] traMADoL [Ultram 50 MG tab] 50 mg PO Q6HR PRN #14 tablet 09/04/19 Unknown Rx Albuterol INH(or & Nicu Only) 2 puff IH Q4H PRN #1 unit 09/07/19 Unknown Rx [ProAir HFA Inhaler] Benzonatate [Tessalon Perles] 100 mg PO Q8HR #20 capsule 09/07/19 Unknown Rx Oseltamivir [Tamiflu] 75 mg PO BID #10 cap 09/07/19 Unknown Rx predniSONE [Deltasone] 50 mg PO QDAY #5 tab 09/07/19 Unknown Rx Allergies Allergy/AdvReac Type Severity Reaction Status Date / Time ibuprofen [From Motrin] AdvReac Itching Verified 12/22/18 22:39 ED Review of Systems ROS: Stated complaint: GUTIERREZ Other details as noted in HPI Comment: All other systems reviewed and negative ED Past Medical Hx - Past Medical History Previous Medical History?: Yes Hx Congestive Heart Failure: No Hx Diabetes: No Hx Asthma: Yes (hx of intubation) Hx COPD: No Additional medical history: pneumonia - Surgical History Past Surgical History?: Yes Additional Surgical History: hernia repair - Social History Smoking Status: Former Smoker Substance Use Type: Alcohol - Medications Home Medications: Home Medications Medication Instructions Recorded Confirmed Last Taken Type Budesonide/Formoterol Fumarate 2 puff IH BID #1 unit 01/18/19 Unknown Rx [Symbicort 160-4.5 Mcg Inhaler] Montelukast [Singulair] 10 mg PO QHS #30 tablet 01/18/19 Unknown Rx Pantoprazole [Protonix TAB] 40 mg PO BID #14 tablet 01/18/19 Unknown Rx Benzonatate [Tessalon Perles] 100 mg PO Q8HR PRN #30 capsule 02/13/19 Unknown Rx levoFLOXacin [Levaquin] 750 mg PO QDAY #7 tablet 02/13/19 Unknown Rx methylPREDNISolone [Medrol 4MG 1 dose PO DAILY #1 tab.ds.pk 02/13/19 Unknown Rx DOSEPAK (21 tabs)] Acetaminophen [Acetaminophen 8 650 mg PO Q8HR PRN #20 tablet.er 09/04/19 Unknown Rx Hour] Azithromycin [Zithromax Z-JAILYN] 1 dose PO DAILY 5 Days tab 09/04/19 Unknown Rx Prednisone [predniSONE 10 mg 10 mg PO .TAPER #1 tab.ds.pk 09/04/19 Unknown Rx (6-Day Pack, 21 Tabs)] traMADoL [Ultram 50 MG tab] 50 mg PO Q6HR PRN #14 tablet 09/04/19 Unknown Rx Albuterol INH(or & Nicu Only) 2 puff IH Q4H PRN #1 unit 09/07/19 Unknown Rx [ProAir HFA Inhaler] Benzonatate [Tessalon Perles] 100 mg PO Q8HR #20 capsule 09/07/19 Unknown Rx Oseltamivir [Tamiflu] 75 mg PO BID #10 cap 09/07/19 Unknown Rx predniSONE [Deltasone] 50 mg PO QDAY #5 tab 09/07/19 Unknown Rx ED Physical Exam - General Limitations: No Limitations General appearance: alert, other (scale but nontoxic speaks in full sentences) - Head Head exam: Present: atraumatic, normocephalic - Eye Eye exam: Present: normal appearance, PERRL, EOMI - ENT ENT exam: Present: normal exam, normal orophraynx, mucous membranes moist - Neck Neck exam: Present: normal inspection, full ROM - Respiratory Respiratory exam: Present: normal lung sounds bilaterally. Absent: respiratory distress - Cardiovascular Cardiovascular Exam: Present: regular rate, normal rhythm. Absent: systolic murmur, diastolic murmur, rubs, gallop - GI/Abdominal GI/Abdominal exam: Present: soft, normal bowel sounds - Rectal Rectal exam: Present: deferred - Extremities Exam Extremities exam: Present: normal inspection - Back Exam Back exam: Present: normal inspection - Neurological Exam Neurological exam: Present: alert, oriented X3 - Psychiatric Psychiatric exam: Present: normal affect, normal mood - Skin Skin exam: Present: warm, dry, intact, normal color. Absent: rash ED Course Vital Signs 09/07/19 09/07/19 09/07/19 13:28 13:40 16:29 Temperature 101.1 F H 101.1 F H 98.3 F Pulse Rate 102 H 100 H 97 H Respiratory 20 20 16 Rate Blood Pressure 140/65 104/65 Blood Pressure 149/69 [Right] O2 Sat by Pulse 96 96 Oximetry ED Medical Decision Making - Lab Data Lab Results 09/07/19 Range/Units 16:13 Influenza A (Rapid) Positive A (Negative) Influenza B (Rapid) Negative (Negative) - Radiology Data Radiology results: report reviewed Chest x-ray read as no acute processes. Unable to cut and paste actual reading due to inability to allow him to the PAC system on the computer - Medical Decision Making + fever, cough, sore throat, malaise consistent with viral illness such as Influenza. Patient Not , from SNF, chronically ill or immunosuppressed. Given History and Exam I have a lower suspicion for: Emergent CardioPulmonary causes [such as Acute Asthma or COPD Exacerbation, acute Heart Failure or exacerbation, PE, PTX, atypical ACS, PNA]. Emergent Otolaryngeal causes [such as [employer], RPA, Lud[place]igs, Epiglottitis, EBV]. Emergent Travel or Immunosuppressive related infectious causes[such as acute HIV, SARS, MERS]. Influenza test + Rx: Given patient symptomatic greater than 48hrs will instruct on conservative self-care and techniques to reduce spread for this suspected transient and self- resolving illness. Disposition: Discharge with strict return precautions. Follow up with primary care provider within 24 hours. Rx: Oseltamivir 75mg PO BID x 5 days as well as instruct on conservative self- care and techniques to reduce spread for this suspected transient and self- resolving illness. Critical care attestation.: If time is entered above; I have spent that time in minutes in the direct care of this critically ill patient, excluding procedure time. ED Disposition Clinical Impression: Asthma exacerbation, Influenza A Disposition: DC-01 TO HOME OR SELFCARE Is pt being admited?: No Does the pt Need Aspirin: No Condition: Stable Instructions: Asthma (ED), Influenza (ED) Prescriptions: predniSONE [Deltasone] 50 mg PO QDAY #5 tab Albuterol INH(or & Nicu Only) [ProAir HFA Inhaler] 2 puff IH Q4H PRN #1 unit PRN Reason: Shortness Of Breath Oseltamivir [Tamiflu] 75 mg PO BID #10 cap Benzonatate [Tessalon Perles] 100 mg PO Q8HR #20 capsule Referrals: JESSEE CALERO MD [Staff Physician] - 3-5 Days
[2019-09-07 16:30] VITALS: BP 149/69
== END 2019-09-07 19:32 | disposition home or self-care (01) ==
LOC: ED 13:22
DX: J45.901 Unspecified asthma with (acute) exacerbation (principal); J10.1 Influenza due to other identified influenza virus with other respiratory manifestations; Z98.890 Other specified postprocedural states; Z87.891 Personal history of nicotine dependence; Z79.899 Other long term (current) drug therapy; Z79.1 Long term (current) use of non-steroidal anti-inflammatories (NSAID); Z88.6 Allergy status to analgesic agent
CPT/HCPCS: 71046; 87400; 94640; 96374; 99284; J2930

== ENCOUNTER 2019-10-26 12:06 | Emergency (ER) | payer SELFPAY ==
[2019-10-26 12:18] VITALS: BP 138/84
[2019-10-26] MEDS ORDERED: ALBUTEROL 2.5 MG/3 ML NEBU IH ONE (12:26)
--- NOTE | 2019-10-26 12:26 | Event Note ---
ED Screening Note ED Screening Note: states he is having cold sweats + dry cough no diarrhea two episodes of vomiting no fever mild SOB, used his asthma inhaler with relief no sick contacts no recent travel PMHx asthma former smoker quit when he was 23 years old mild wheeze/rhonchi This initial assessment/diagnostic orders/clinical plan/treatment(s) is/are subject to change based on patients health status, clinical progression and re- assessment by fellow clinical providers in the ED. Further treatment and workup at subsequent clinical providers discretion. Patient/guardian urged not to elope from the ED as their condition may be serious if not clinically assessed and managed. Initial orders include: rapid flu, CXR, neb tx
--- NOTE | 2019-10-26 13:05 | XRay Report ---
CHEST 2 VIEWS INDICATION / CLINICAL INFORMATION: cough, wheezing, asthma. COMPARISON: 09/07/2019 FINDINGS: SUPPORT DEVICES: None. HEART / MEDIASTINUM: No significant abnormality. LUNGS / PLEURA: Large bulla in the left lower lung No pneumothorax. ADDITIONAL FINDINGS: No significant additional findings. IMPRESSION: Large bulla in the left lower lung. No acute disease or interval change from 09/07/2019 Signer Name: Connor Jeffrey MD FACR Signed: 10/26/2019 1:00 PM Workstation Name: [id number]
[2019-10-26] MEDS: IPRATROPIUM 0.02% NEBU 2.5 ML IH ONE ×2 (13:14→13:16)
--- NOTE | 2019-10-26 13:45 | Emergency Department Report ---
Minor Respiratory - HPI Chief Complaint: Upper Respiratory Infection Stated Complaint: HEADACHE, SWEATING COLD, COUGH Time Seen by Provider: 10/26/19 12:22 ED Review of Systems ROS: Stated complaint: HEADACHE, SWEATING COLD, COUGH Other details as noted in HPI ED Past Medical Hx - Past Medical History Previous Medical History?: Yes Hx Congestive Heart Failure: No Hx Diabetes: No Hx Asthma: Yes (hx of intubation) Hx COPD: No Additional medical history: pneumonia - Surgical History Past Surgical History?: Yes Additional Surgical History: hernia repair - Social History Smoking Status: Former Smoker Substance Use Type: None - Medications Home Medications: Home Medications Medication Instructions Recorded Confirmed Last Taken Type Budesonide/Formoterol Fumarate 2 puff IH BID #1 unit 01/18/19 Unknown Rx [Symbicort 160-4.5 Mcg Inhaler] Montelukast [Singulair] 10 mg PO QHS #30 tablet 01/18/19 Unknown Rx Pantoprazole [Protonix TAB] 40 mg PO BID #14 tablet 01/18/19 Unknown Rx Benzonatate [Tessalon Perles] 100 mg PO Q8HR PRN #30 capsule 02/13/19 Unknown Rx levoFLOXacin [Levaquin] 750 mg PO QDAY #7 tablet 02/13/19 Unknown Rx methylPREDNISolone [Medrol 4MG 1 dose PO DAILY #1 tab.ds.pk 02/13/19 Unknown Rx DOSEPAK (21 tabs)] Acetaminophen [Acetaminophen 8 650 mg PO Q8HR PRN #20 tablet.er 09/04/19 Unknown Rx Hour] Azithromycin [Zithromax Z-JAILYN] 1 dose PO DAILY 5 Days tab 09/04/19 Unknown Rx Prednisone [predniSONE 10 mg 10 mg PO .TAPER #1 tab.ds.pk 09/04/19 Unknown Rx (6-Day Pack, 21 Tabs)] traMADoL [Ultram 50 MG tab] 50 mg PO Q6HR PRN #14 tablet 09/04/19 Unknown Rx Albuterol INH(or & Nicu Only) 2 puff IH Q4H PRN #1 unit 09/07/19 Unknown Rx [ProAir HFA Inhaler] Benzonatate [Tessalon Perles] 100 mg PO Q8HR #20 capsule 09/07/19 Unknown Rx Oseltamivir [Tamiflu] 75 mg PO BID #10 cap 09/07/19 Unknown Rx predniSONE [Deltasone] 50 mg PO QDAY #5 tab 09/07/19 Unknown Rx Minor Respiratory Exam - Exam General: Vital signs noted. No distress. Alert and acting appropriately. Neurologic: Alert and oriented, no deficits. Musculoskeletal: Unremarkable. ED Course Vital Signs 10/26/19 10/26/19 12:15 12:23 Temperature 99.1 F 99.1 F Pulse Rate 109 H 113 H Respiratory 20 20 Rate Blood Pressure 138/84 138/84 O2 Sat by Pulse 98 97 Oximetry ED Medical Decision Making - Radiology Data Radiology results: report reviewed Report Referring Physician:YUE WITTPatient Name:ANUSHA WATTSPatient ID:[id number] of :[id number]:MaleAccession:[id number] Date:[id number] Status:Finalized Findings [facility] [address] [place] [address] XRay Report Signed Patient: ANUSHA WATTS MR#: [id number] : 1975 Acct:[id number] Age/Sex: 44 / M ADM Date: 10/26/19 Loc: ED Attending Dr: Ordering Physician: EDEN PRICE Date of Service: 10/26/19 Procedure(s): XR chest routine 2V Accession Number(s): [id number] cc: EDEN PRICE Fluoro Time In Minutes: CHEST 2 VIEWS INDICATION / CLINICAL INFORMATION: cough, wheezing, asthma. COMPARISON: 09/07/2019 FINDINGS: SUPPORT DEVICES: None. HEART / MEDIASTINUM: No significant abnormality. LUNGS / PLEURA: Large bulla in the left lower lung No pneumothorax. ADDITIONAL FINDINGS: No significant additional findings. IMPRESSION: Large bulla in the left lower lung. No acute disease or interval change from 09/07/2019 Signer Name: Connor Jeffrey MD FACR Signed: 10/26/2019 1:00 PM Workstation Name: [id number] Transcribed By: MS Dictated By: Connor Jeffrey MD Electronically Authenticated By: Connor Jeffrey MD Signed Date/Time: 10/26/19 1300 DD/ 1259 TD/TT: Critical care attestation.: If time is entered above; I have spent that time in minutes in the direct care of this critically ill patient, excluding procedure time. ED Disposition Clinical Impression: Cough Disposition: DC-07 LEFT AGAINST MED ADVICE Is pt being admited?: No Does the pt Need Aspirin: No Condition: Stable Referrals: PRIMARY CARE, [Primary Care Provider] - 3-5 Days
== END 2019-10-26 15:00 | disposition left against medical advice (07) ==
LOC: ED 12:06
DX: R51 Headache (principal); R05 Cough; J00 Acute nasopharyngitis [common cold]; J45.909 Unspecified asthma, uncomplicated; Z98.890 Other specified postprocedural states; Z87.891 Personal history of nicotine dependence; Z79.2 Long term (current) use of antibiotics; Z79.899 Other long term (current) drug therapy; Z88.8 Allergy status to other drugs, medicaments and biological substances
CPT/HCPCS: 71046; 87400; 94640

== ENCOUNTER 2019-12-02 19:15 | Emergency (ER) | payer SELFPAY ==
[2019-12-02] MEDS ORDERED: methylPREDNISolone Sod Succinate 125 MG/2 ML INJ IV ONE (19:30)
[2019-12-02] MEDS ORDERED: SODIUM CHLORIDE 0.9% 1000 ML 1,000 ML IV ONE (19:30)
--- NOTE | 2019-12-02 19:35 | Emergency Department Report ---
HPI - General Chief Complaint: Dyspnea/Respdistress Time Seen by Provider: 12/02/19 19:21 - HPI HPI: 44-year-old male presents to the emergency department via EMS from home with complaint of a 1 day history of shortness of breath. He has some wheezing and dry coughing, but denies any chest pain or fever. He does have a history of significant asthma in which she has been intubated in the past. He has been using his albuterol inhaler and nebulizer without much relief. He did call EMS earlier in the day but started feeling better after he received a breathing treatment with them so he did not get transferred for evaluation at that time. No recent travel or sick contacts at home. ED Past Medical Hx - Past Medical History Hx Congestive Heart Failure: No Hx Diabetes: No Hx Asthma: Yes (hx of intubation) Hx COPD: No Additional medical history: pneumonia - Surgical History Additional Surgical History: hernia repair - Social History Smoking Status: Unknown if ever smoked Substance Use Type: None - Medications Home Medications: Home Medications Medication Instructions Recorded Confirmed Last Taken Type Budesonide/Formoterol Fumarate 2 puff IH BID #1 unit 01/18/19 Unknown Rx [Symbicort 160-4.5 Mcg Inhaler] Montelukast [Singulair] 10 mg PO QHS #30 tablet 01/18/19 Unknown Rx Pantoprazole [Protonix TAB] 40 mg PO BID #14 tablet 01/18/19 Unknown Rx Benzonatate [Tessalon Perles] 100 mg PO Q8HR PRN #30 capsule 02/13/19 Unknown Rx levoFLOXacin [Levaquin] 750 mg PO QDAY #7 tablet 02/13/19 Unknown Rx methylPREDNISolone [Medrol 4MG 1 dose PO DAILY #1 tab.ds.pk 02/13/19 Unknown Rx DOSEPAK (21 tabs)] Acetaminophen [Acetaminophen 8 650 mg PO Q8HR PRN #20 tablet.er 09/04/19 Unknown Rx Hour] Azithromycin [Zithromax Z-JAILYN] 1 dose PO DAILY 5 Days tab 09/04/19 Unknown Rx traMADoL [Ultram 50 MG tab] 50 mg PO Q6HR PRN #14 tablet 09/04/19 Unknown Rx Benzonatate [Tessalon Perles] 100 mg PO Q8HR #20 capsule 09/07/19 Unknown Rx Oseltamivir [Tamiflu] 75 mg PO BID #10 cap 09/07/19 Unknown Rx predniSONE [Deltasone] 50 mg PO QDAY #5 tab 09/07/19 Unknown Rx ALBUTEROL NEB's [Proventil 0.083% 2.5 mg IH TID PRN #1 box 12/02/19 Unknown Rx NEBS] Albuterol INH(or & Nicu Only) 2 puff IH Q4H PRN #1 unit 12/02/19 Unknown Rx [ProAir HFA Inhaler] Prednisone [predniSONE 10 mg 10 mg PO .TAPER #1 tab.ds.pk 12/02/19 Unknown Rx (6-Day Pack, 21 Tabs)] ED Review of Systems ROS: Stated complaint: DIFFICULTY IN BREATHING Other details as noted in HPI Comment: All other systems reviewed and negative Constitutional: denies: chills, fever Eyes: denies: eye pain, vision change ENT: denies: ear pain, throat pain Respiratory: cough, shortness of breath, wheezing Cardiovascular: denies: chest pain, edema Gastrointestinal: denies: abdominal pain, vomiting Genitourinary: denies: dysuria, discharge Musculoskeletal: denies: back pain, arthralgia Skin: denies: rash, lesions Neurological: denies: headache, weakness Physical Exam - Physical Exam Vital Signs: Vital Signs 12/02/19 19:26 Temperature 98.4 F Pulse Rate 100 H Respiratory 24 Rate Blood Pressure 142/94 [Right] O2 Sat by Pulse 100 Oximetry Physical Exam: GENERAL: The patient is well-developed well-nourished. HENT: Normocephalic. Atraumatic. Patient has moist mucous membranes. EYES: Extraocular motions are intact. NECK: Supple. Trachea is midline. CHEST/LUNGS: Decreased breath sounds bilaterally with mild wheezing heard. There is some tachypnea but no accessory muscle use. HEART/CARDIOVASCULAR: Regular. There is no tachycardia. ABDOMEN: Abdomen is soft, nontender. Patient has normal bowel sounds. SKIN: Skin is warm and dry. NEURO: The patient is awake, alert, and oriented. The patient is cooperative. The patient has no focal neurologic deficits. Normal speech. MUSCULOSKELETAL: There is no tenderness or deformity. There is no evidence of acute injury. ED Course Vital Signs 12/02/19 19:26 Temperature 98.4 F Pulse Rate 100 H Respiratory 24 Rate Blood Pressure 142/94 [Right] O2 Sat by Pulse 100 Oximetry ED Medical Decision Making - Lab Data Result diagrams: 12/02/19 19:38 12/02/19 19:38 - EKG Data -: EKG Interpreted by Me EKG shows normal: sinus rhythm, axis, intervals, QRS complexes, ST-T waves Rate: normal - EKG Data When compared to previous EKG there are: previous EKG unavailable Interpretation: normal EKG - Radiology Data Radiology results: report reviewed CHEST 1 VIEW 7:30 PM INDICATION / CLINICAL INFORMATION: SOB. COMPARISON: 10/26/19. FINDINGS: SUPPORT DEVICES: None. HEART / MEDIASTINUM: The heart size and pulmonary vasculature are normal. LUNGS / PLEURA: Large bulla in the left mid to lower lung medially is again noted. No new parenchymal or pleural abnormality. No pneumothorax. ADDITIONAL FINDINGS: No significant additional findings. IMPRESSION: No acute abnormality or significant change. Large bulla in the left mid to lower lung medially is stable. - Medical Decision Making This patient presents to the emergency department with complaint of some shortness of breath, wheezing, coughing that he feels is consistent with an asthma exacerbation. However his condition has been resistant to his home albuterol inhaler and nebulizer treatments. On examination he sounds very tight with some decreased breath sounds and mild wheezing. The patient was given a continuous breathing treatment and IV Solu-Medrol. He was reevaluated and appears to be improving. His lung sounds have opened up and/or increased and now there is moderate wheezing heard throughout the chest. The patient was then given some IV magnesium and another continuous albuterol breathing treatment. After this round of treatments the patient is greatly improved. There is only mild expiratory wheezing heard and no tachypnea. Chest x-ray was done that shows his stable left lower lobe bulla but otherwise no pneumonia, pleural effusions, pneumothorax, or any other acute process. His labs have been unremarkable. Vital signs stable throughout his ED course including being afebrile. The patient says he is feeling greatly improved and asking for discharge home. He has been instructed to follow-up with his primary care and has been discharged home with a refill of his albuterol and given a course of steroids. He will return to the ER with any worsening of his symptoms or any acute distress. Critical Care Time: No Critical care attestation.: If time is entered above; I have spent that time in minutes in the direct care of this critically ill patient, excluding procedure time. ED Disposition Clinical Impression: Asthma exacerbation Qualifiers: Asthma severity: unspecified severity Asthma persistence: unspecified Qualified Code(s): J45.901 - Unspecified asthma with (acute) exacerbation Disposition: TO HOME OR SELFCARE Is pt being admited?: No Condition: Stable Instructions: Asthma (ED) Additional Instructions: Please follow-up with your primary care physician in the next few days. Return to the emergency department with any worsening of your symptoms or any acute distress. Prescriptions: Prednisone [predniSONE 10 mg (6-Day Pack, 21 Tabs)] 10 mg PO .TAPER #1 tab.ds.pk Albuterol INH(or & Nicu Only) [ProAir HFA Inhaler] 2 puff IH Q4H PRN #1 unit PRN Reason: Shortness Of Breath ALBUTEROL NEB's [Proventil 0.083% NEBS] 2.5 mg IH TID PRN #1 box PRN Reason: Wheezing Referrals: PRIMARY CARE, [Primary Care Provider] - 2-3 Days Time of Disposition: 22:32
[2019-12-02] MEDS ORDERED: IPRATROPIUM 0.02% NEBU 2.5 ML IH ONE ×2 (19:54→19:58)
[2019-12-02] MEDS ORDERED: ALBUTEROL 2.5 MG/3 ML NEBU IH ONE ×3 (19:55→21:16)
--- NOTE | 2019-12-02 19:56 | XRay Report ---
CHEST 1 VIEW 7:30 PM INDICATION / CLINICAL INFORMATION: SOB. COMPARISON: 10/26/19. FINDINGS: SUPPORT DEVICES: None. HEART / MEDIASTINUM: The heart size and pulmonary vasculature are normal. LUNGS / PLEURA: Large bulla in the left mid to lower lung medially is again noted. No new parenchymal or pleural abnormality. No pneumothorax. ADDITIONAL FINDINGS: No significant additional findings. IMPRESSION: No acute abnormality or significant change. Large bulla in the left mid to lower lung med ially is stable. Signer Name: Tigre Thayer MD Signed: 12/02/2019 7:52 PM Workstation Name: [id number]
[2019-12-02 20:01] LABS: Basophils # (Auto) 0.1 K/mm3 (0.0-0.1); Basophils % (Auto) 1.3 % (0.0-1.8); Eosinophils # (Auto) 0.9 K/mm3 (0.0-0.4); Eosinophils % (Auto) 12.1 % (0.0-4.3); Hemoglobin 14.6 gm/dl (11.8-15.2); Lymphocytes # (Auto) 3.1 K/mm3 (1.2-5.4); Lymphocytes % (Auto) 42.4 % (13.4-35.0); Mean Corpuscular HGB Conc 33 % (32-34); Mean Corpuscular Volume 92 fl (84-94); Monocytes # (Auto) 0.4 K/mm3 (0.0-0.8); Monocytes % (Auto) 5.4 % (0.0-7.3); Platelet Count 215 K/mm3 (140-440); Red Blood Count 4.91 M/mm3 (3.65-5.03); Red Cell Distribution Width 16.3 % (13.2-15.2)
[2019-12-02 20:08] LABS: INR 0.97 (0.87-1.13)
[2019-12-02 20:13] LABS: Alanine Aminotransferase 35 units/L (7-56); BUN/Creatinine Ratio 16; Blood Urea Nitrogen 14 mg/dL (9-20); Calcium 9.3 mg/dL (8.4-10.2); Hemolysis Index 53
[2019-12-02] MEDS ORDERED: MAGNESIUM SULFATE 2 GM/50 ML BAG IV ONE (21:16)
[2019-12-02 23:20] VITALS: BP 142/94
== END 2019-12-02 23:19 | disposition home or self-care (01) ==
LOC: ED 19:15
DX: J45.901 Unspecified asthma with (acute) exacerbation (principal); Z79.899 Other long term (current) drug therapy; Z98.890 Other specified postprocedural states; Z88.6 Allergy status to analgesic agent
CPT/HCPCS: 36415; 71045; 80053; 85025; 85610; 93005; 94644; 96365; 96375; 99285; J2930; J3475; J7030

== ENCOUNTER 2019-12-07 05:18 | Inpatient (IN) | payer SELFPAY ==
[2019-12-07] MEDS ORDERED: ALBUTEROL 2.5 MG/3 ML NEBU IH ONE ×2 (05:22→05:25)
[2019-12-07] MEDS ORDERED: IPRATROPIUM/ALBUTEROL SULFATE 3 ML AMPUL.NEB IH ONE (05:22)
--- NOTE | 2019-12-07 05:24 | Event Note ---
ED Screening Note Date of service: 12/07/19 Time: 05:10 ED Screening Note: Patient is a 44-year-old male that presents emergency room with difficulty breathing. Patient brought in by EMS. Patient was given Solu-Medrol 125 mg, albuterol 5 mg, magnesium 2 g and placed on a nonrebreather. Patient's current oxygen saturation is 96% on room air. Patient is having increased work to breathe. Patient will be placed on BiPAP and given a DuoNeb and a 10 mg albuterol. This initial assessment/diagnostic orders/clinical plan/treatment(s) is/are subject to change based on patients health status, clinical progression and re- assessment by fellow clinical providers in the ED. Further treatment and workup at subsequent clinical providers discretion. Patient/guardian urged not to elope from the ED as their condition may be serious if not clinically assessed and managed. Initial orders include: CBC, chemistry, albuterol 10 mg, DuoNeb, BiPAP, chest x-ray
[2019-12-07] MEDS ORDERED: IPRATROPIUM 0.02% NEBU 2.5 ML IH ONE ×2 (05:25→05:28)
[2019-12-07 05:55] LABS: Hematocrit 46.6 % (35.5-45.6); Hemoglobin 15.6 gm/dl (11.8-15.2); Mean Corpuscular HGB Conc 34 % (32-34); Mean Corpuscular Volume 91 fl (84-94); Platelet Count 222 K/mm3 (140-440); Red Blood Count 5.12 M/mm3 (3.65-5.03); Red Cell Distribution Width 16.1 % (13.2-15.2)
[2019-12-07 06:17] LABS: Alanine Aminotransferase 45 units/L (7-56); Albumin 4.4 g/dL (3.9-5); BUN/Creatinine Ratio 16; Blood Urea Nitrogen 21 mg/dL (9-20); Hemolysis Index 16
--- NOTE | 2019-12-07 06:32 | Emergency Department Report ---
HPI - General Chief Complaint: Dyspnea/Respdistress Time Seen by Provider: 12/07/19 05:21 - HPI HPI: Room 2 The patient is a 44-year-old male present with a chief complaint of shortness of breath. Patient states he was short of breath for 1 day. Patient admits to a cough. The patient is a very poor historian and requires frequent reawakening during the interview. Patient was seen initially by overnight provider states the patient was hypoxic on room air improved on BiPAP once in the ED ED Past Medical Hx - Past Medical History Hx Asthma: Yes (hx of intubation) Additional medical history: pneumonia - Surgical History Additional Surgical History: hernia repair - Family History Family history: no significant - Social History Smoking Status: Former Smoker Substance Use Type: None - Medications Home Medications: Home Medications Medication Instructions Recorded Confirmed Last Taken Type Budesonide/Formoterol Fumarate 2 puff IH BID #1 unit 01/18/19 Unknown Rx [Symbicort 160-4.5 Mcg Inhaler] Montelukast [Singulair] 10 mg PO QHS #30 tablet 01/18/19 Unknown Rx Pantoprazole [Protonix TAB] 40 mg PO BID #14 tablet 01/18/19 Unknown Rx Benzonatate [Tessalon Perles] 100 mg PO Q8HR PRN #30 capsule 02/13/19 Unknown Rx levoFLOXacin [Levaquin] 750 mg PO QDAY #7 tablet 02/13/19 Unknown Rx methylPREDNISolone [Medrol 4MG 1 dose PO DAILY #1 tab.ds.pk 02/13/19 Unknown Rx DOSEPAK (21 tabs)] Acetaminophen [Acetaminophen 8 650 mg PO Q8HR PRN #20 tablet.er 09/04/19 Unknown Rx Hour] Azithromycin [Zithromax Z-JAILYN] 1 dose PO DAILY 5 Days tab 09/04/19 Unknown Rx traMADoL [Ultram 50 MG tab] 50 mg PO Q6HR PRN #14 tablet 09/04/19 Unknown Rx Benzonatate [Tessalon Perles] 100 mg PO Q8HR #20 capsule 09/07/19 Unknown Rx Oseltamivir [Tamiflu] 75 mg PO BID #10 cap 09/07/19 Unknown Rx predniSONE [Deltasone] 50 mg PO QDAY #5 tab 09/07/19 Unknown Rx ALBUTEROL NEB's [Proventil 0.083% 2.5 mg IH TID PRN #1 box 12/02/19 Unknown Rx NEBS] Albuterol INH(or & Nicu Only) 2 puff IH Q4H PRN #1 unit 12/02/19 Unknown Rx [ProAir HFA Inhaler] Prednisone [predniSONE 10 mg 10 mg PO .TAPER #1 tab.ds.pk 12/02/19 Unknown Rx (6-Day Pack, 21 Tabs)] ED Review of Systems ROS: Stated complaint: GUTIERREZ Other details as noted in HPI Comment: Unobtainable due to pts medical conditions Physical Exam - Physical Exam Vital Signs: Vital Signs 12/07/19 12/07/19 12/07/19 05:20 05:22 05:25 Temperature 98.6 F 98.6 F Pulse Rate 104 H 111 H 111 H Pulse Rate [ Bilateral Throughout] Respiratory 24 22 22 Rate Respiratory Rate [Bilateral Throughout] Blood Pressure 136/78 140/109 Blood Pressure 140/109 [Right] O2 Sat by Pulse 99 98 98 Oximetry 12/07/19 05:31 Temperature Pulse Rate Pulse Rate [ 101 H Bilateral Throughout] Respiratory Rate Respiratory 21 Rate [Bilateral Throughout] Blood Pressure Blood Pressure [Right] O2 Sat by Pulse Oximetry Physical Exam: GENERAL: The patient is well-developed well-nourished male sleeping on stretcher with BiPAP in place. [] HEENT: Normocephalic. Atraumatic. Extraocular motions are intact. Patient has moist mucous membranes. NECK: Supple. Trachea midline CHEST/LUNGS: Wheezing present. On BiPAP HEART/CARDIOVASCULAR: Regular. There is no tachycardia. There is no gallop rub or murmur. ABDOMEN: Abdomen is soft, nontender. Patient has normal bowel sounds. There is no abdominal distention. SKIN: There is no rash. There is no edema. There is no diaphoresis. NEURO: The patient is asleep but awakens with tactile stimuli. The patient is cooperative. The patient has no focal neurologic deficits. The patient has normal speech MUSCULOSKELETAL: There is no evidence of acute injury. ED Course Vital Signs 12/07/19 12/07/19 12/07/19 05:20 05:22 05:25 Temperature 98.6 F 98.6 F Pulse Rate 104 H 111 H 111 H Pulse Rate [ Bilateral Throughout] Respiratory 24 22 22 Rate Respiratory Rate [Bilateral Throughout] Blood Pressure 136/78 140/109 Blood Pressure 140/109 [Right] O2 Sat by Pulse 99 98 98 Oximetry 12/07/19 05:31 Temperature Pulse Rate Pulse Rate [ 101 H Bilateral Throughout] Respiratory Rate Respiratory 21 Rate [Bilateral Throughout] Blood Pressure Blood Pressure [Right] O2 Sat by Pulse Oximetry ED Medical Decision Making - Lab Data Result diagrams: 12/07/19 05:30 12/07/19 05:30 - Radiology Data Radiology results: report reviewed (Chest x-ray), image reviewed (Chest x-ray) interpreted by me: Chest x-ray-no focal infiltrates, no pneumothorax Findings [facility] [address] [place] [address] XRay Report Signed Patient: ANUSHA WATTS MR#: [id number] : 1975 Acct:[id number] Age/Sex: 44 / M ADM Date: 12/07/19 Loc: ED Attending Dr: Ordering Physician: CINDY NORWOOD III, MD Date of Service: 12/07/19 Proced ure(s): XR chest 1V ap Accession Number(s): [id number] cc: CINDY NORWOOD III, MD Fluoro Time In Minutes: CHEST 1 VIEW INDICATION: Dyspnea. COMPARISON: 12/02/2019 FINDINGS: Support devices: None. Heart: Within normal limits. Lungs/Pleura: No acute air space or interstitial disease. Additional findings: None. IMPRESSION: 1. No acute findings. Signer Name: Ed Chavez MD Signed: 12/07/2019 6:27 AM Workstation Name: [id number] Transcribed By: JW Dictated By: dE Chavez MD Electronically Authenticated By: Ed Chavez MD Signed Date/Time: 12/07/19626 DD/ 6 TD/TT: - Differential Diagnosis Asthma exacerbation, pneumonia, bronchitis Critical care attestation.: If time is entered above; I have spent that time in minutes in the direct care of this critically ill patient, excluding procedure time. ED Disposition Clinical Impression: Asthma exacerbation, Shortness of breath, Hypoxia Disposition: OP ADMIT IP TO THIS HOSP Is pt being admited?: Yes Does the pt Need Aspirin: No Condition: Fair Time of Disposition: 07:06 (Hospitalist paged)
[2019-12-07 07:07] LABS: Basophils % (Manual) 0 % (0.0-1.8); Total Cells Counted 100
[2019-12-07 07:08] LABS: Anisocytosis 1+; Platelet Estimate Consistent w Auto
[2019-12-07] MEDS ORDERED: ALBUTEROL 2.5 MG/3 ML NEBU IH PRN (08:00)
[2019-12-07] MEDS ORDERED: ACETAMINOPHEN 325 MG TAB PO PRN (08:00)
[2019-12-07] MEDS ORDERED: ONDANSETRON 4 MG/2 ML INJ IV PRN (08:30)
[2019-12-07] MEDS: IPRATROPIUM/ALBUTEROL SULFATE 3 ML AMPUL.NEB IH SCH ×3 (09:30→20:41)
--- NOTE | 2019-12-07 10:20 | History and Physical Report ---
History of Present Illness Date of examination: 12/07/19 Date of admission: 12/07/19 07:17 Chief complaint: shortness of breath and wheezing History of present illness: Patient is 44 yo with asthma. He presents with shortness of breath,cough and wheezing for few days. Shortness of breath is worse on exertion. Wheezing also worse on exertion. He denies fever. Denies chest pain.Symptoms were getting worse therefore came to ED for evaluation. Patient was seen and evaluated in Emergency Department. Chest X ray was unremarkable. He was started on BIPAP and will be admitted for further management. Past History Past Medical History: other (Asthma) Social history: full code, other (Alcohol daily). denies: smoking Family history: diabetes, hypertension Medications and Allergies Allergies Allergy/AdvReac Type Severity Reaction Status Date / Time ibuprofen [From Motrin] AdvReac Itching Verified 12/02/19 19:23 Home Medications Medication Instructions Recorded Confirmed Last Taken Type Budesonide/Formoterol Fumarate 2 puff IH BID #1 unit 01/18/19 Unknown Rx [Symbicort 160-4.5 Mcg Inhaler] Montelukast [Singulair] 10 mg PO QHS #30 tablet 01/18/19 Unknown Rx Pantoprazole [Protonix TAB] 40 mg PO BID #14 tablet 01/18/19 Unknown Rx Benzonatate [Tessalon Perles] 100 mg PO Q8HR PRN #30 capsule 02/13/19 Unknown Rx levoFLOXacin [Levaquin] 750 mg PO QDAY #7 tablet 02/13/19 Unknown Rx methylPREDNISolone [Medrol 4MG 1 dose PO DAILY #1 tab.ds.pk 02/13/19 Unknown Rx DOSEPAK (21 tabs)] Acetaminophen [Acetaminophen 8 650 mg PO Q8HR PRN #20 tablet.er 09/04/19 U nknown Rx Hour] Azithromycin [Zithromax Z-JAILYN] 1 dose PO DAILY 5 Days tab 09/04/19 Unknown Rx traMADoL [Ultram 50 MG tab] 50 mg PO Q6HR PRN #14 tablet 09/04/19 Unknown Rx Benzonatate [Tessalon Perles] 100 mg PO Q8HR #20 capsule 09/07/19 Unknown Rx Oseltamivir [Tamiflu] 75 mg PO BID #10 cap 09/07/19 Unknown Rx predniSONE [Deltasone] 50 mg PO QDAY #5 tab 09/07/19 Unknown Rx ALBUTEROL NEB's [Proventil 0.083% 2.5 mg IH TID PRN #1 box 12/02/19 Unknown Rx NEBS] Albuterol INH(or & Nicu Only) 2 puff IH Q4H PRN #1 unit 12/02/19 Unknown Rx [ProAir HFA Inhaler] Prednisone [predniSONE 10 mg 10 mg PO .TAPER #1 tab.ds.pk 12/02/19 Unknown Rx (6-Day Pack, 21 Tabs)] Active Meds: Active Medications Acetaminophen (Tylenol) 650 mg PO Q4H PRN PRN Reason: Pain MILD(1-3)/Fever >100.5/WILSON Albuterol (Proventil) 2.5 mg IH Q4HRT PRN PRN Reason: Shortness Of Breath Albuterol/Ipratropium (Duoneb *Not For Prn Use*) 1 ampul IH Q6HRT DUGLAS Methylprednisolone Sodium Succinate (Solu-Medrol) 80 mg IV Q8HR DUGLAS Ondansetron HCl (Zofran) 4 mg IV Q8H PRN PRN Reason: Nausea And Vomiting Sodium Chloride (Sodium Chloride Flush Syringe 10 Ml) 10 ml IV BID DUGLAS Sodium Chloride (Sodium Chloride Flush Syringe 10 Ml) 10 ml IV PRN PRN PRN Reason: LINE FLUSH Exam - Physical Exam Narrative exam: GEN: Not in acute distress, obese, lying in bed HEENT: Normocephalic, atraumatic, Neck: supple, No JVD Lungs: Biolaterl rhonchi, wheeze Heart;S1 and S2 reg, no murmurs, rubs or gallop Abd:soft, non tender, non distended, normal bowel sounds, Ext: No edema, no clubbing, no cyanosis, Neuro: Awake,alert,oriented X3 , no focal signs, - Constitutional Vitals: Temp Pulse Resp BP Pulse Ox 98.9 F 69 20 114/69 95 12/07/19 09:41 12/07/19 09:41 12/07/19 09:41 12/07/19 09:41 12/07/19 09:41 Results - Labs CBC & Chem 7: 12/07/19 05:30 12/07/19 05:30 Labs: Abnormal lab results 12/07/19 12/07/19 Range/Units 05:30 05:30 RBC 5.12 H (3.65-5.03) M/mm3 Hgb 15.6 H (11.8-15.2) gm/dl Hct 46.6 H (35.5-45.6) % RDW 16.1 H (13.2-15.2) % Seg Neuts % (Manual) 26.0 L (40.0-70.0) % Lymphocytes % (Manual) 55.0 H (13.4-35.0) % Eosinophils % (Manual) 15.0 H (0.0-4.3) % Eosinophils # (Manual) 1.4 H (0.0-0.4) K/mm3 BUN 21 H (9-20) mg/dL Glucose 132 H (75-100) mg/dL AST 41 H (5-40) units/L Assessment and Plan Acute respiratory failure due to asthma exacerbation was started on BIPAP, now on Oxygen by [place] Supplemental Oxygen resp assess and treat protocol CXR neg Asthma exacerbation Start Solumedrol iv q 8h Albuterol q4h prn monitor pulse ox obtain ABG DVT prophylaxis Lovenox
[2019-12-07] MEDS: methylPREDNISolone Sod Succinate 125 MG/2 ML INJ IV SCH ×3 (10:24→22:13)
[2019-12-07 12:57] LABS: ABG Base Excess -2.7 mmol/L (-2.0-3.0); ABG HCO3 22.6 mmol/L (20.0-26.0); ABG Methemoglobin 0.5 % (0.0-1.5); ABG PCO2 40.8 mm Hg; ABG PH 7.36 pH Units (7.350-7.450)
[2019-12-07] MEDS: ENOXAPARIN 40 MG/0.4 ML INJ SUB-Q SCH (22:13)
[2019-12-08] MEDS: IPRATROPIUM/ALBUTEROL SULFATE 3 ML AMPUL.NEB IH SCH ×4 (04:17→20:25)
[2019-12-08 05:49] LABS: BUN/Creatinine Ratio 18; Blood Urea Nitrogen 16 mg/dL (9-20); Calcium 9.7 mg/dL (8.4-10.2); Hemolysis Index 7
[2019-12-08 05:50] LABS: Basophils % (Auto) 0.1 % (0.0-1.8); Eosinophils % (Auto) 0.1 % (0.0-4.3); Hematocrit 44.4 % (35.5-45.6); Hemoglobin 15.1 gm/dl (11.8-15.2); Lymphocytes # (Auto) 1.3 K/mm3 (1.2-5.4); Lymphocytes % (Auto) 10.4 % (13.4-35.0); Mean Corpuscular HGB Conc 34 % (32-34); Mean Corpuscular Volume 90 fl (84-94); Monocytes # (Auto) 0.3 K/mm3 (0.0-0.8); Monocytes % (Auto) 2.3 % (0.0-7.3); Platelet Count 211 K/mm3 (140-440); Red Blood Count 4.93 M/mm3 (3.65-5.03); Red Cell Distribution Width 16.1 % (13.2-15.2)
[2019-12-08] MEDS: methylPREDNISolone Sod Succinate 125 MG/2 ML INJ IV SCH ×3 (06:05→22:04)
--- NOTE | 2019-12-08 08:28 | Progress Note ---
Assessment and Plan Assessment and plan: Acute respiratory failure due to asthma exacerbation Improving was started on BIPAP, now on Oxygen by VT Supplemental Oxygen resp assess and treat protocol CXR neg Asthma exacerbation Start Solumedrol iv q 8h Albuterol q4h prn monitor pulse ox obtain ABG DVT prophylaxis Lovenox 12/08/19 He feels better, less SOB, less wheezing. Poss dc tomorrow if continues to do well. History Interval history: Feels better Less shortness of breath Less wheezing Hospitalist Physical - Physical exam Narrative exam: GEN: Not in acute distress, obese, lying in bed HEENT: Normocephalic, atraumatic, Neck: supple, No JVD Lungs: Bilateral rhonchi, wheeze Heart;S1 and S2 reg, no murmurs, rubs or gallop Abd:soft, non tender, non distended, normal bowel sounds, Ext: No edema, no clubbing, no cyanosis, Neuro: Awake,alert,oriented X3 , no focal signs, - Constitutional Vitals: Temp Pulse Resp BP Pulse Ox 98.0 F 75 16 121/71 96 12/08/19 00:21 12/08/19 04:20 12/08/19 04:20 12/08/19 00:21 12/08/19 04:20 Results - Labs CBC & Chem 7: 12/08/19 05:02 12/08/19 05:02 Labs: Laboratory Last Values WBC 12.7 K/mm3 (4.5-11.0) H 12/08/19 05:02 RBC 4.93 M/mm3 (3.65-5.03) 12/08/19 05:02 Hgb 15.1 gm/dl (11.8-15.2) 12/08/19 05:02 Hct 44.4 % (35.5-45.6) 12/08/19 05:02 MCV 90 fl (84-94) 12/08/19 05:02 MCH 31 pg (28-32) 12/08/19 05:02 MCHC 34 % (32-34) 12/08/19 05:02 RDW 16.1 % (13.2-15.2) H 12/08/19 05:02 Plt Count 211 K/mm3 (140-440) 12/08/19 05:02 Lymph % (Auto) 10.4 % (13.4-35.0) L 12/08/19 05:02 Page % (Auto) 2.3 % (0.0-7.3) 12/08/19 05:02 Eos % (Auto) 0.1 % (0.0-4.3) 12/08/19 05:02 Baso % (Auto) 0.1 % (0.0-1.8) 12/08/19 05:02 Lymph # 1.3 K/mm3 (1.2-5.4) 12/08/19 05:02 Page # 0.3 K/mm3 (0.0-0.8) 12/08/19 05:02 Eos # 0.0 K/mm3 (0.0-0.4) 12/08/19 05:02 Baso # 0.0 K/mm3 (0.0-0.1) 12/08/19 05:02 Add Manual Diff Complete 12/07/19 05:30 Total Counted 100 12/07/19 05:30 Seg Neutrophils % 87.1 % (40.0-70.0) H 12/08/19 05:02 Seg Neuts % (Manual) 26.0 % (40.0-70.0) L 12/07/19 05:30 Band Neutrophils % 0 % 12/07/19 05:30 Lymphocytes % (Manual) 55.0 % (13.4-35.0) H 12/07/19 05:30 Reactive Lymphs % (Man) 0 % 12/07/19 05:30 Monocytes % (Manual) 4.0 % (0.0-7.3) 12/07/19 05:30 Eosinophils % (Manual) 15.0 % (0.0-4.3) H 12/07/19 05:30 Basophils % (Manual) 0 % (0.0-1.8) 12/07/19 05:30 Metamyelocytes % 0 % 12/07/19 05:30 Myelocytes % 0 % 12/07/19 05:30 Promyelocytes % 0 % 12/07/19 05:30 Blast Cells % 0 % 12/07/19 05:30 Nucleated RBC % Not Reportable 12/07/19 05:30 Seg Neutrophils # 11.1 K/mm3 (1.8-7.7) H 12/08/19 05:02 Seg Neutrophils # Man 2.3 K/mm3 (1.8-7.7) 12/07/19 05:30 Band Neutrophils # 0.0 K/mm3 12/07/19 05:30 Lymphocytes # (Manual) 5.0 K/mm3 (1.2-5.4) 12/07/19 05:30 Abs React Lymphs (Man) 0.0 K/mm3 12/07/19 05:30 Monocytes # (Manual) 0.4 K/mm3 (0.0-0.8) 12/07/19 05:30 Eosinophils # (Manual) 1.4 K/mm3 (0.0-0.4) H 12/07/19 05:30 Basophils # (Manual) 0.0 K/mm3 (0.0-0.1) 12/07/19 05:30 Metamyelocytes # 0.0 K/mm3 12/07/19 05:30 Myelocytes # 0.0 K/mm3 12/07/19 05:30 Promyelocytes # 0.0 K/mm3 12/07/19 05:30 Blast Cells # 0.0 K/mm3 12/07/19 05:30 WBC Morphology Not Reportable 12/07/19 05:30 Hypersegmented Neuts Not Reportable 12/07/19 05:30 Hyposegmented Neuts Not Reportable 12/07/19 05:30 Hypogranular Neuts Not Reportable 12/07/19 05:30 Smudge Cells Not Reportable 12/07/19 05:30 Toxic Granulation Not Reportable 12/07/19 05:30 Toxic Vacuolation Not Reportable 12/07/19 05:30 Dohle Bodies Not Reportable 12/07/19 05:30 Pelger-Huet Anomaly Not Reportable 12/07/19 05:30 Kandy Rods Not Reportable 12/07/19 05:30 Platelet Estimate Consistent w auto 12/07/19 05:30 Clumped Platelets Not Reportable 12/07/19 05:30 Plt Clumps, EDTA Not Reportable 12/07/19 05:30 Large Platelets Not Reportable 12/07/19 05:30 Giant Platelets Not Reportable 12/07/19 05:30 Platelet Satelliting Not Reportable 12/07/19 05:30 Plt Morphology Comment Not Reportable 12/07/19 05:30 RBC Morphology Not Reportable 12/07/19 05:30 Dimorphic RBCs Not Reportable 12/07/19 05:30 Polychromasia Not Reportable 12/07/19 05:30 Hypochromasia Not Reportable 12/07/19 05:30 Poikilocytosis Not Reportable 12/07/19 05:30 Anisocytosis 1+ 12/07/19 05:30 Microcytosis Not Reportable 12/07/19 05:30 Macrocytosis Not Reportable 12/07/19 05:30 Spherocytes Not Reportable 12/07/19 05:30 Pappenheimer Bodies Not Reportable 12/07/19 05:30 Sickle Cells Not Reportable 12/07/19 05:30 Target Cells Not Reportable 12/07/19 05:30 Tear Drop Cells Not Reportable 12/07/19 05:30 Ovalocytes Not Reportable 12/07/19 05:30 Helmet Cells Not Reportable 12/07/19 05:30 Rock-Arley Bodies Not Reportable 12/07/19 05:30 [place] Rings Not Reportable 12/07/19 05:30 Victorina Cells Not Reportable 12/07/19 05:30 Bite Cells Not Reportable 12/07/19 05:30 Crenated Cell Not Reportable 12/07/19 05:30 Elliptocytes Not Reportable 12/07/19 05:30 Acanthocytes (Spur) Not Reportable 12/07/19 05:30 Rouleaux Not Reportable 12/07/19 05:30 Hemoglobin C Crystals Not Reportable 12/07/19 05:30 Schistocytes Not Reportable 12/07/19 05:30 Malaria parasites Not Reportable 12/07/19 05:30 Prasad Bodies Not Reportable 12/07/19 05:30 Hem Pathologist Commnt No 12/07/19 05:30 ABG pH 7.360 pH Units (7.350-7.450) 12/07/19 12:05 ABG pCO2 40.8 mm Hg 12/07/19 12:05 ABG pO2 73.0 mm Hg (80.0-90.0) L 12/07/19 12:05 ABG HCO3 22.6 mmol/L (20.0-26.0) 12/07/19 12:05 ABG O2 Saturation 95.0 % (95.0-99.0) 12/07/19 12:05 ABG O2 Content 20.6 (0.0-44) 12/07/19 12:05 ABG Base Excess -2.7 mmol/L (-2.0-3.0) L 12/07/19 12:05 ABG Hemoglobin 15.7 gm/dl (14.0-18.0) 12/07/19 12:05 ABG Carboxyhemoglobin 1.3 % (0.0-5.0) 12/07/19 12:05 ABG Methemoglobin 0.5 % (0.0-1.5) 12/07/19 12:05 Oxyhemoglobin 93.3 % (95.0-99.0) L 12/07/19 12:05 FiO2 28 % 12/07/19 12:05 Sodium 138 mmol/L (137-145) 12/08/19 05:02 Potassium 4.9 mmol/L (3.6-5.0) D 12/08/19 05:02 Chloride 101.9 mmol/L (98-107) 12/08/19 05:02 Carbon Dioxide 21 mmol/L (22-30) L 12/08/19 05:02 Anion Gap 20 mmol/L 12/08/19 05:02 BUN 16 mg/dL (9-20) 12/08/19 05:02 Creatinine 0.9 mg/dL (0.8-1.5) 12/08/19 05:02 Estimated GFR > 60 ml/min 12/08/19 05:02 BUN/Creatinine Ratio 18 % 12/08/19 05:02 Glucose 149 mg/dL (75-100) H 12/08/19 05:02 Lactic Acid 1.50 mmol/L (0.7-2.0) 12/07/19 05:30 Calcium 9.7 mg/dL (8.4-10.2) 12/08/19 05:02 Total Bilirubin 0.50 mg/dL (0.1-1.2) 12/07/19 05:30 AST 41 units/L (5-40) H 12/07/19 05:30 ALT 45 units/L (7-56) 12/07/19 05:30 Alkaline Phosphatase 49 units/L (35-129) 12/07/19 05:30 Total Protein 6.9 g/dL (6.3-8.2) 12/07/19 05:30 Albumin 4.4 g/dL (3.9-5) 12/07/19 05:30 Albumin/Globulin Ratio 1.8 % 12/07/19 05:30 Pichardo/IV: Voiding Method Urinal IV Catheter Type [Left Hand] INT / Saline Lock Active Medications - Current Medications Current Medications: Generic Name Dose Route Start Last Admin Trade Name Freq PRN Reason Stop Dose Admin Acetaminophen 650 mg 12/07/19 08:00 Tylenol PO Q4H PRN Pain MILD(1-3)/Fever >100.5/WILSON Albuterol 2.5 mg 12/07/19 08:00 Proventil IH Q4HRT PRN Shortness Of Breath Albuterol/Ipratropium 1 ampul 12/07/19 08:00 12/08/19 04:17 Duoneb *Not For Prn Use* IH 1 ampul Q6HRT DUGLAS Administration Enoxaparin Sodium 40 mg 12/07/19 22:00 12/07/19 22:13 Enoxaparin SUB-Q Not Given QDAY@2200 DUGLAS Methylprednisolone Sodium Succinate 80 mg 12/07/19 08:30 12/08/19 06:05 Solu-Medrol IV 80 mg Q8HR DUGLAS Administration Ondansetron HCl 4 mg 12/07/19 08:30 Zofran IV Q8H PRN Nausea And Vomiting Sodium Chloride 10 ml 12/07/19 10:00 12/07/19 22:13 Sodium Chloride Flush Syringe 10 Ml IV 10 ml BID DUGLAS Administration Sodium Chloride 10 ml 12/07/19 10:00 12/08/19 06:05 Sodium Chloride Flush Syringe 10 Ml IV 10 ml PRN PRN Administration LINE FLUSH
[2019-12-08] MEDS: ENOXAPARIN 40 MG/0.4 ML INJ SUB-Q SCH (22:05)
[2019-12-09] MEDS: IPRATROPIUM/ALBUTEROL SULFATE 3 ML AMPUL.NEB IH SCH ×2 (01:44→08:27)
[2019-12-09] MEDS: methylPREDNISolone Sod Succinate 125 MG/2 ML INJ IV SCH (05:32)
--- NOTE | 2019-12-09 08:44 | Discharge Summary ---
Providers - Providers Date of Admission: 12/07/19 07:17 Date of discharge: 12/09/19 Attending physician: JAZZY SCHRADER Primary care physician: YAIR LONG MD Hospitalization Condition: Fair Disposition: DC-01 TO HOME OR SELFCARE Core Measure Documentation - Palliative Care Palliative Care/ Comfort Measures: Not Applicable - Core Measures Any of the following diagnoses?: none Exam - Constitutional Vitals: Temp Pulse Resp BP Pulse Ox 98.2 F 93 H 20 120/76 93 12/08/19 21:35 12/09/19 08:28 12/09/19 08:28 12/08/19 21:35 12/09/19 08:27 Plan Activity: advance as tolerated Diet: low fat, low cholesterol, low salt Additional Instructions: 1.Follow up with PCP in 1 week Plan of Treatment: 1.Follow up with PCP in 1 week Follow up with: YAIR LONG MD [Primary Care Provider] - 7 Days
[2019-12-10 11:41] VITALS: BP 129/86
== END 2019-12-09 11:35 | disposition home or self-care (01) | DRG 189 ==
LOC: ED 05:18 → 4A 07:17
PROVIDERS: ADMIT Internal Medicine; ATTEND Internal Medicine
PROC: 4A033R1 Measurement of Arterial Saturation, Peripheral, Percutaneous Approach (ICD-10-PCS; principal; 2019-12-07)
PROC: 5A09357 Assistance with Respiratory Ventilation, Less than 24 Consecutive Hours, Continuous Positive Airway Pressure (ICD-10-PCS; 2019-12-07)
DX: J96.01 Acute respiratory failure with hypoxia (principal); J45.901 Unspecified asthma with (acute) exacerbation; Z87.01 Personal history of pneumonia (recurrent); Z87.891 Personal history of nicotine dependence; Z83.3 Family history of diabetes mellitus; Z82.49 Family history of ischemic heart disease and other diseases of the circulatory system; Z88.6 Allergy status to analgesic agent
CPT/HCPCS: 36415; 36600; 71045; 80048; 80053; 82140; 82803; 85007; 85025; 87116; 87641; 94640; 94644; 94760; G0378; J1650; J2930

== ENCOUNTER 2020-04-16 11:49 | Emergency (ER) | payer SELFPAY ==
[2020-04-16] MEDS ORDERED: ACETAMINOPHEN 500 MG TAB PO ONE (14:52)
--- NOTE | 2020-04-16 15:36 | Emergency Department Report ---
- General Chief complaint: Puncture Wound Stated complaint: LFT FOOT GLASS Time Seen by Provider: 04/16/20 14:47 Source: patient Mode of arrival: Ambulatory Limitations: No Limitations - History of Present Illness Initial comments: This is a 45-year-old male nontoxic, well nourished in appearance, no acute signs of distress presents to the ED with c/o of open wound to left posterior foot. Patient stated he believes he stepped on a glass and injured foot. Denies follow-up with PCP or provider for this condition. Patient denies any pus or drainage. Patient denies any fever, chills, nausea, vomiting, chest pain, shortness of breath, headache or stiff neck. Patient stated allergies includes Motrin. Stated UTD with tetanus 2 years ago. MD complaint: other (open wound) -: month(s) (1) Tetanus Up to Date: yes Location: L foot Severity: mild Severity scale (0 -10): 8 Quality: aching Consistency: constant Improves with: none Worsens with: none Context: none Associated symptoms: denies other symptoms - Related Data Previous Rx's Medication Instructions Recorded Last Taken Type Budesonide/Formoterol Fumarate 2 puff IH BID #1 unit 01/18/19 11/28/19 08:00 Rx [Symbicort 160-4.5 Mcg Inhaler] traMADoL [Ultram 50 MG tab] 50 mg PO Q6HR PRN #14 tablet 09/04/19 11/19/19 08:00 Rx ALBUTEROL NEB's [Proventil 0.083% 2.5 mg IH TID PRN #1 box 12/02/19 11/29/19 08:00 Rx NEBS] Albuterol Mdi (or & Nicu Only) 2 puff IH Q4H PRN #1 unit 12/02/19 11/29/19 08:00 Rx [ProAir HFA Inhaler] Prednisone [predniSONE 10 mg 10 mg PO .TAPER #1 tab.ds.pk 12/09/19 Unknown Rx (6-Day Pack, 21 Tabs)] Ciprofloxacin HCl [Ciprofloxacin 500 mg PO Q12HR #14 tab 04/16/20 Unknown Rx TAB] Allergies Allergy/AdvReac Type Severity Reaction Status Date / Time ibuprofen [From Motrin] AdvReac Itching Verified 04/16/20 11:50 Abscess Boil HPI - HPI Chief Complaint: Puncture Wound Stated Complaint: LFT FOOT GLASS Time Seen by Provider: 04/16/20 14:47 Home Medications: Previous Rx's Medication Instructions Recorded Last Taken Type Budesonide/Formoterol Fumarate 2 puff IH BID #1 unit 01/18/19 11/28/19 08:00 Rx [Symbicort 160-4.5 Mcg Inhaler] traMADoL [Ultram 50 MG tab] 50 mg PO Q6HR PRN #14 tablet 09/04/19 11/19/19 08:00 Rx ALBUTEROL NEB's [Proventil 0.083% 2.5 mg IH TID PRN #1 box 12/02/19 11/29/19 08:00 Rx NEBS] Albuterol Mdi (or & Nicu Only) 2 puff IH Q4H PRN #1 unit 12/02/19 11/29/19 08:00 Rx [ProAir HFA Inhaler] Prednisone [predniSONE 10 mg 10 mg PO .TAPER #1 tab.ds.pk 12/09/19 Unknown Rx (6-Day Pack, 21 Tabs)] Ciprofloxacin HCl [Ciprofloxacin 500 mg PO Q12HR #14 tab 04/16/20 Unknown Rx TAB] Allergies/Adverse Reactions: Allergies Allergy/AdvReac Type Severity Reaction Status Date / Time ibuprofen [From Motrin] AdvReac Itching Verified 04/16/20 11:50 ED Review of Systems ROS: Stated complaint: LFT FOOT GLASS Other details as noted in HPI Constitutional: denies: chills, fever Eyes: denies: eye pain, eye discharge, vision change ENT: denies: ear pain, throat pain Respiratory: denies: cough, shortness of breath, wheezing Cardiovascular: denies: chest pain, palpitations Endocrine: no symptoms reported Gastrointestinal: denies: abdominal pain, nausea, diarrhea Genitourinary: denies: urgency, dysuria Musculoskeletal: denies: back pain, joint swelling, arthralgia Skin: denies: rash, lesions Neurological: denies: headache, weakness, paresthesias Psychiatric: denies: anxiety, depression Hematological/Lymphatic: denies: easy bleeding, easy bruising ED Past Medical Hx - Past Medical History Hx Congestive Heart Failure: No Hx Diabetes: No Hx Asthma: Yes (hx of intubation) Hx COPD: No Hx HIV: No Additional medical history: pneumonia - Surgical History Additional Surgical History: hernia repair - Social History Smoking Status: Never Smoker Substance Use Type: None - Medications Home Medications: Home Medications Medication Instructions Recorded Confirmed Last Taken Type Budesonide/Formoterol Fumarate 2 puff IH BID #1 unit 01/18/19 12/07/19 11/28/19 08:00 Rx [Symbicort 160-4.5 Mcg Inhaler] traMADoL [Ultram 50 MG tab] 50 mg PO Q6HR PRN #14 tablet 09/04/19 12/07/19 11/19/19 08:00 Rx ALBUTEROL NEB's [Proventil 0.083% 2.5 mg IH TID PRN #1 box 12/02/19 12/07/19 11/29/19 08:00 Rx NEBS] Albuterol Mdi (or & Nicu Only) 2 puff IH Q4H PRN #1 unit 12/02/19 12/07/19 11/29/19 08:00 Rx [ProAir HFA Inhaler] Prednisone [predniSONE 10 mg 10 mg PO .TAPER #1 tab.ds.pk 12/09/19 Unknown Rx (6-Day Pack, 21 Tabs)] Ciprofloxacin HCl [Ciprofloxacin 500 mg PO Q12HR #14 tab 04/16/20 Unknown Rx TAB] ED Physical Exam - General Limitations: No Limitations General appearance: alert, in no apparent distress - Head Head exam: Present: atraumatic, normocephalic - Eye Eye exam: Present: normal appearance - Neck Neck exam: Present: normal inspection, full ROM - Respiratory Respiratory exam: Absent: respiratory distress - Cardiovascular Cardiovascular Exam: Present: regular rate - Extremities Exam Extremities exam: Present: full ROM, tenderness, normal capillary refill. Absent: joint swelling - Expanded Lower Extremity Exam Left Hip exam: Present: normal inspection, full ROM. Absent: tenderness Upper Leg exam: Present: normal inspection, full ROM. Absent: tenderness Knee exam: Present: normal inspection, full ROM. Absent: tenderness Lower Leg exam: Present: normal inspection, full ROM. Absent: tenderness, swelling, abrasion, laceration, ecchymosis, deformity, crepidus, dislocation, erythema, palpable cord, Shruti's sign Ankle exam: Present: normal inspection, full ROM. Absent: tenderness, swelling, abrasion, laceration, ecchymosis, deformity, crepidus, dislocation, erythema, anterior draw sign Foot/Toe exam: Present: full ROM, tenderness, puncture wound. Absent: swelling, abrasion, laceration, ecchymosis, deformity, crepidus, erythema, amputation, foreign body, calcaneal tenderness, tenderness at base of 5th metatarsal, nail avulsion, subungual hematoma Neuro vascular tendon exam: Present: no vascular compromise Gait: Positive: observed and normal 1 - 2 cm x 2 cm puncture wound noted w/ no foreign body upon exam - Back Exam Back exam: Present: normal inspection, full ROM - Neurological Exam Neurological exam: Present: alert, oriented X3, normal gait - Psychiatric Psychiatric exam: Present: normal affect, normal mood - Skin Skin exam: Present: warm, dry, intact, normal color. Absent: rash ED Course Vital Signs 04/16/20 11:54 Temperature 98.0 F Pulse Rate 89 Respiratory 18 Rate Blood Pressure 150/90 O2 Sat by Pulse 97 Oximetry - Reevaluation(s) Reevaluation #1: 04/16/20 15:40 Patient is speaking in full sentences with no signs of distress noted. ED Medical Decision Making - Radiology Data Referring Physician: MOISES REDMOND Patient Name: ANUSHA WATTS Date of : 1975 Sex: Male Report Date: 2020-04-16 Report Status: Finalized [address] [id number] XRay Report Signed Patient: ANUSHA WATTS MR#: [id number] : 1975 Acct:[id number] Age/Sex: 45 / M ADM Date: 04/16/20 Loc: ED Attending Dr: Ordering Physician: MOISES REDMOND Date of Service: 04/16/20 Procedure(s): XR foot 3+V LT Accession Number(s): [id number] cc: MOISES REDMOND Fluoro Time In Minutes: LEFT FOOT 3 VIEWS INDICATION / CLINICAL INFORMATION: glass foreign body COMPARISON: None available. FINDINGS: BONES / JOINT(S): No acute fracture or subluxation. There is bunion deformity of the great toe MTP joint. SOFT TISSUES: No radiopaque foreign bodies are seen. ADDITIONAL FINDINGS: None. Signer Name: Ridge Mccarty MD Signed: 04/16/2020 4:16 PM Workstation Name: [id number] Transcribed By: Dictated By: Ridge Mccarty MD Electronically Authenticated By: Ridge Mccarty MD Signed Date/Time: 04/16/201615 DD/ 14 TD/TT: - Medical Decision Making This is a 45-year-old male that presents with puncture wound. Patient is stable and was examined by me. Pt is notified of the xray results with no questinos noted by the patient. Area has been cleaned with betadine and water. Dressing applied. Educated on wound care. There is no induration, fluctuance. No signs of abscess formation. The area has been outlined with a permanent marker and patient was instructed to observe symptoms of increased redness or swelling and to return to the ER if this does occur. I will discharge patient with cipro due to coverage for P. aeruginosa. Patient was referred to Follow-up with a primary care doctor in 3-5 days or if symptoms worsen and continue return to emergency room as soon as possible. At time of discharge, the patient does not seem toxic or ill in appearance. No acute signs of distress noted. Patient agrees to discharge treatment plan of care. No further questions noted by the patient. Critical care attestation.: If time is entered above; I have spent that time in minutes in the direct care of this critically ill patient, excluding procedure time. ED Disposition Clinical Impression: Open wound of left foot Qualifiers: Encounter type: initial encounter Qualified Code(s): S91.302A - Unspecified open wound, left foot, initial encounter Disposition: DC-01 TO HOME OR SELFCARE Is pt being admited?: No Does the pt Need Aspirin: No Condition: Stable Instructions: Acute Wound Care (ED) Additional Instructions: Follow-up with a primary care doctor in 3-5 days or if symptoms worsen and continue return to emergency room as soon as possible. Prescriptions: Ciprofloxacin HCl [Ciprofloxacin TAB] 500 mg PO Q12HR #14 tab Referrals: YAIR LONG MD [Primary Care Provider] - 3-5 Days JESSEE CALERO MD [Staff Physician] - 3-5 Days Forms: Work/School Release Form(ED)
--- NOTE | 2020-04-16 16:21 | XRay Report ---
LEFT FOOT 3 VIEWS INDICATION / CLINICAL INFORMATION: glass foreign body COMPARISON: None available. FINDINGS: BONES / JOINT(S): No acute fracture or subluxation. There is bunion deformity of the great toe MTP arben int. SOFT TISSUES: No radiopaque foreign bodies are seen. ADDITIONAL FINDINGS: None. Signer Name: Ridge Mccarty MD Signed: 04/16/2020 4:16 PM Workstation Name: [id number]
[2020-04-16 17:11] VITALS: BP 143/86
== END 2020-04-16 17:11 | disposition home or self-care (01) ==
LOC: ED 11:49
DX: S91.302A Unspecified open wound, left foot, initial encounter (principal); J45.909 Unspecified asthma, uncomplicated; Z79.899 Other long term (current) drug therapy; Z88.8 Allergy status to other drugs, medicaments and biological substances; W25.XXXA Contact with sharp glass, initial encounter; Y93.89 Activity, other specified; Y92.89 Other specified places as the place of occurrence of the external cause; Y99.8 Other external cause status
CPT/HCPCS: 99283

== ENCOUNTER 2022-01-23 13:48 | Emergency (ER) | payer SELFPAY ==
[2022-01-23 13:56] VITALS: BP 162/72
== END 2022-01-24 02:25 | disposition left against medical advice (07) ==
LOC: ED 13:48
DX: M79.604 Pain in right leg (principal); Z53.21 Procedure and treatment not carried out due to patient leaving prior to being seen by health care provider

== ENCOUNTER 2022-02-13 02:24 | Emergency (ER) | payer SELFPAY ==
[2022-02-13 09:27] VITALS: BP 106/62
[2022-02-13] MEDS ORDERED: dexAMETHasone 20 MG/5 ML VIAL IM ONE (10:48)
--- NOTE | 2022-02-13 10:52 | Emergency Department Report ---
ED Back Pain/Injury HPI - General Chief Complaint: Back Pain/Injury Stated Complaint: SCIATIC PAIN x1 WEEK Source: EMS Limitations: No Limitations - History of Present Illness Initial Comments: 46-year-old male presents to the ED complaining chronic back pain radiating to his right leg. Patient states pain is a current 8 out of 10. He was evalaute last week at [facility] and was referred to the pain clinic. Patient states that his threw his discharge paper work away and he do not have the number to pain clinic referral . Patient states that he given Robaxin and steroid for pain. Patient was resting quietly with his eyes closed when entering room. Patient denies any IV drug use any, fever, chills ,dysuria nausea. Patient is alert and oriented x3. No acute distress noted. No ill appearance. MD Complaint: back pain Onset/Timin -: week(s) Similar Symptoms Previously: Yes Radiation: right leg Severity scale (0 -10): 8 Quality: aching Consistency: intermittent Improves With: none Worsens With: none - Related Data Previous Rx's Medication Instructions Recorded Last Taken Type Budesonide/Formoterol Fumarate 2 puff IH BID #1 unit 01/18/19 11/28/19 08:00 Rx [Symbicort 160-4.5 Mcg Inhaler] traMADoL [Ultram 50 MG tab] 50 mg PO Q6HR PRN #14 tablet 09/04/19 11/19/19 08:00 Rx ALBUTEROL NEB's [Proventil 0.083% 2.5 mg IH TID PRN #1 box 12/02/19 11/29/19 08:00 Rx NEBS] Albuterol Mdi (or & Nicu Only) 2 puff IH Q4H PRN #1 unit 12/02/19 11/29/19 08:00 Rx [ProAir HFA Inhaler] Prednisone [predniSONE 10 mg 10 mg PO .TAPER #1 tab.ds.pk 12/09/19 Unknown Rx (6-Day Pack, 21 Tabs)] Ciprofloxacin HCl [Ciprofloxacin 500 mg PO Q12HR #14 tab 04/16/20 Unknown Rx TAB] predniSONE [Deltasone] 50 mg PO DAILY 3 Days #3 tab 02/13/22 Unknown Rx traMADoL [Ultram 50 MG tab] 50 mg PO Q6HR PRN 3 Days #12 tablet 02/13/22 Unknown Rx Allergies Allergy/AdvReac Type Severity Reaction Status Date / Time NSAIDS (Non-Steroidal Allergy Itching Verified 01/23/22 13:57 Anti-Inflamma ibuprofen [From Motrin] AdvReac Itching Verified 04/16/20 11:50 ED Review of Systems ROS: Stated complaint: SCIATIC PAIN x1 WEEK Other details as noted in HPI Constitutional: denies: chills, fever Eyes: denies: eye pain, eye discharge, vision change ENT: denies: ear pain, throat pain Respiratory: denies: cough, shortness of breath, wheezing Cardiovascular: denies: chest pain, palpitations Endocrine: no symptoms reported Gastrointestinal: denies: abdominal pain, nausea, diarrhea Genitourinary: denies: urgency, dysuria Musculoskeletal: back pain. denies: joint swelling, arthralgia Skin: denies: rash, lesions Neurological: denies: headache, weakness, paresthesias Psychiatric: denies: anxiety, depression Hematological/Lymphatic: denies: easy bleeding, easy bruising ED Past Medical Hx - Past Medical History Previous Medical History?: Yes Hx Congestive Heart Failure: No Hx Diabetes: No Hx Asthma: Yes (hx of intubation) Hx COPD: No Hx HIV: No Additional medical history: pneumonia - Surgical History Past Surgical History?: Yes Additional Surgical History: hernia repair - Social History Smoking Status: Never Smoker Substance Use Type: None - Medications Home Medications: Home Medications Medication Instructions Recorded Confirmed Last Taken Type Budesonide/Formoterol Fumarate 2 puff IH BID #1 unit 01/18/19 12/07/19 11/28/19 08:00 Rx [Symbicort 160-4.5 Mcg Inhaler] traMADoL [Ultram 50 MG tab] 50 mg PO Q6HR PRN #14 tablet 09/04/19 12/07/19 11/19/19 08:00 Rx ALBUTEROL NEB's [Proventil 0.083% 2.5 mg IH TID PRN #1 box 12/02/19 12/07/19 11/29/19 08:00 Rx NEBS] Albuterol Mdi (or & Nicu Only) 2 puff IH Q4H PRN #1 unit 12/02/19 12/07/1911/28 08:00 Rx [ProAir HFA Inhaler] Prednisone [predniSONE 10 mg 10 mg PO .TAPER #1 tab.ds.pk 12/09/19 Unknown Rx (6-Day Pack, 21 Tabs)] Ciprofloxacin HCl [Ciprofloxacin 500 mg PO Q12HR #14 tab 04/16/20 Unknown Rx TAB] predniSONE [Deltasone] 50 mg PO DAILY 3 Days #3 tab 02/13/22 Unknown Rx traMADoL [Ultram 50 MG tab] 50 mg PO Q6HR PRN 3 Days #12 tablet 02/13/22 Unknown Rx ED Physical Exam - General Limitations: No Limitations General appearance: alert, in no apparent distress - Head Head exam: Present: atraumatic, normocephalic - Eye Eye exam: Present: normal appearance - ENT ENT exam: Present: mucous membranes moist - Neck Neck exam: Present: normal inspection - Respiratory Respiratory exam: Present: normal lung sounds bilaterally. Absent: respiratory distress - Cardiovascular Cardiovascular Exam: Present: regular rate, normal rhythm. Absent: systolic murmur, diastolic murmur, rubs, gallop - GI/Abdominal GI/Abdominal exam: Present: soft, normal bowel sounds - Rectal Rectal exam: Present: deferred - Extremities Exam Extremities exam: Present: normal inspection - Back Exam Back exam: Present: normal inspection - Neurological Exam Neurological exam: Present: alert, oriented X3 - Psychiatric Psychiatric exam: Present: normal affect, normal mood - Skin Skin exam: Present: warm, dry, intact, normal color. Absent: rash ED Course Vital Signs 02/13/22 02/13/22 02:25 09:25 Temperature 98.7 F 98.0 F Pulse Rate 85 77 Respiratory 18 17 Rate Blood Pressure 151/117 Blood Pressure 106/62 [Right] O2 Sat by Pulse 97 99 Oximetry ED Medical Decision Making - Medical Decision Making 46-year-old male presents to the ED complaining chronic back pain radiating to his right leg. Patient states pain is a current 8 out of 10. He was evalaute last week at [facility] and was referred to the pain clinic. Patient states that his threw his discharge paperwork away and he do not have the number to pain clinic referral. Patient states that he given Robaxin and steroid for pain. Patient was resting quietly with his eyes closed when entering room. Patient denies any IV drug use any, fever, chills ,dysuria nausea. Patient is alert and oriented x3. No acute distress noted. No ill appearance. Rechecked the patient is resting quietly quietly and comfortable and feeling better. I discussed the results of diagnostic study, my clinical impression and the plan for further treatment with the patient. Patient agrees with plan and discharge at this present time. All question addressed. I have given the patient instruction regarding a diagnosis ,expectation ,follow- up and return precaution. I explained to the patient that emergent condition may arise and to return to the ED for new worsen and any new persisting condition. I have explained the importance of following up with the primary care physician or referral physician listed below has instructed. The patient verbalized understanding of discharge instruction. Critical care attestation.: If time is entered above; I have spent that time in minutes in the direct care of this critically ill patient, excluding procedure time. ED Disposition Clinical Impression: Chronic back pain Qualifiers: Back pain location: low back pain Back pain laterality: right Sciatica presence: with sciatica Sciatica laterality: sciatica of right side Qualified Code(s): M54.41 - Lumbago with sciatica, right side Disposition: 01 HOME / SELF CARE / HOMELESS Is pt being admited?: No Does the pt Need Aspirin: No Condition: Stable Instructions: Chronic Back Pain, [id number] Additional Instructions: Follow-up with [facility] as previous instructed Take medication medication as prescribed Prescriptions: predniSONE [Deltasone] 50 mg PO DAILY 3 Days #3 tab traMADoL [Ultram 50 MG tab] 50 mg PO Q6HR PRN 3 Days #12 tablet PRN Reason: Pain Referrals: [facility] [Outside] - 3-5 Days [facility] [Provider Group] - 3-5 Days Forms: Work/School Release Form(ED) Time of Disposition: 11:03
== END 2022-02-13 11:21 | disposition home or self-care (01) ==
LOC: ED 02:24
DX: G89.29 Other chronic pain (principal); M54.9 Dorsalgia, unspecified; J45.909 Unspecified asthma, uncomplicated; Z98.890 Other specified postprocedural states; Z88.6 Allergy status to analgesic agent
CPT/HCPCS: 96372; 99283; J1100